=== PATIENT | female | born 1970 | race Caucasian/White ===

== ENCOUNTER 2016-10-11 21:31 | Emergency (ER) | payer MEDICAID ==
[2016-10-11] MEDS ORDERED: Sodium Chloride 0.9% 10 ML Syringe FLUSH PRN (21:41)
--- NOTE | 2016-10-11 21:44 | EDM.PDOC ---
ED HPI ENT - General Chief Complaint: ENT Problem Stated Complaint: Strep throat, achy, throat pain, vomiting Time Seen by Provider: 10/11/16 21:32 Source of Information: Reports: Patient, RN, RN notes reviewed History Limitations: Reports: No limitations - History of Present Illness INITIAL COMMENTS - FREE TEXT/NARRATIVE: Patient presents to the ED at [facility] complaining of severe throat pain, N/V, and weakness. Patient was seen by me in the clinic 2 days ago and was treated for positive strep throat. Patient states her symptoms are worse tonight. Patient states she feels sick to her stomach and has vomited x3 today. She is trying to stay well hydrated, but swallowing is painful. No respiratory problems. No focal neurological deficits. No cardiac symptoms. 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) (currently taking Augmentin PO) - Related Data Allergies/ADRs: Allergies Allergy/AdvReac Type Severity Reaction Status Date / Time scopolamine Allergy Mild Rash Verified 10/11/16 21:48 aspirin Allergy Unknown Other Verified 10/11/16 21:48 Home Meds: Home Meds Amitriptyline [Elavil] 50 mg PO BEDTIME 09/20/13 [History] Multivitamin [Multi-Vitamin Daily] 1 tab PO DAILY 09/20/13 [History] DULoxetine [Cymbalta] 90 mg PO DAILY 03/20/14 [History] Baclofen [Lioresal] 20 mg PO TID 08/06/15 [History] Calcium Carb & Citrate/Vit D3 [Citracal + D ER] 1 each PO BID 08/06/15 [History] Cholecalciferol (Vitamin D3) [Vitamin D3] 2,000 unit PO DAILY 08/06/15 [History] Cyanocobalamin (Vitamin B12) [Vitamin B12] 500 mcg PO DAILY 08/06/15 [History] Dicyclomine [Bentyl] 10 mg PO QIDACANDBED 08/06/15 [History] Estrogen,Con/M-Progest Acet [Prempro 0.45-1.5 MG] 1 each PO DAILY 08/06/15 [ History] Ferrous Sulfate [Iron Supplement] 325 mg PO DAILY 08/06/15 [History] Gabapentin [Gabapentin] 800 mg PO TID 08/06/15 [History] Lidocaine 5% [Lidoderm 5%] 700 mg TOP DAILY 08/06/15 [History] Magnesium 500 mg PO DAILY 08/06/15 [History] busPIRone [Buspar] 30 mg PO BID 08/06/15 [History] Atropine/Diphenoxylate [Lomotil 0.025-2.5 MG] 1 tab PO QID PRN 09/19/16 [History ] Nystatin 1 applic TOP TID PRN 09/19/16 [History] Ondansetron [Zofran Odt] 4 mg PO Q6H PRN 09/19/16 [History] Amoxicillin/Potassium Clav [Augmentin 875-125 Tablet] 1 tab PO BID 10/11/16 [ History] Past Medical History HEENT History: Reports: Allergic rhinitis Cardiovascular History: Reports: CAD, High cholesterol Respiratory History: Reports: None Gastrointestinal History: Reports: Chronic diarrhea, Irritable bowel syndrome Genitourinary History: Reports: Other (see below) Other Genitourinary History: HPV +. 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 HIP BURSITIS Neurological History: Reports: Migraines, Other (see below) Other Neuro History: LUMBAR DISC HERNIATION. SI PAIN Psychiatric History: Reports: Addiction, Anxiety, Depression, Eating disorders Endocrine/Metabolic History: Reports: Diabetes, type II, Obesity/BMI 30+ Other Endocrine/Metabolic History: IFG Hematologic History: Reports: Other (see below) Other Hematologic History: + HEP C ANITIBODY Immunologic History: Reports: None Oncologic (Cancer) History: Reports: None Dermatologic History: Reports: None - Infectious Disease History Infectious Disease History: Reports: Chicken pox - Past Surgical History HEENT Surgical History: Reports: None Cardiovascular Surgical History: Reports: None GI Surgical History: Reports: Bariatric procedure, Cholecystectomy Female Surgical History: Reports: Tubal ligation Neurological Surgical History: Reports: Lumbar spine, Spinal fusion Musculoskeletal Surgical History: Reports: Other (see below) Other Musculoskeletal Surgeries/Procedures:: back surgery 01/29/16 Oncologic Surgical History: Reports: None Social & Family History - Family History Family Medical History: Noncontributory - Tobacco Use Smoking Status *Q: Former Smoker Years of Tobacco use: 5 Packs/Tins Daily: 1 Used Tobacco, but Quit: Yes Month Tobacco Last Used: 5 years Second Hand Smoke Exposure: No - Alcohol Use Days Per Week of Alcohol Use: 0 - Recreational Drug Use Recreational Drug Use: No Drug Use in Last 12 Months: No Recreational Drug Type: Reports: Cocaine, Marijuana/Hashish Recreational Drug Use Frequency: Not Used In Over 1 Year ED ROS ENT - Review of Systems Review Of Systems: See Below Constitutional: Reports: weakness, decreased appetite. Denies: fever, chills HEENT: Reports: Throat pain, Throat swelling. Denies: Ear discharge, Ear pain, Eye discharge, Eye pain, Rhinitis, Sinus problem Respiratory: Denies: shortness of breath, cough Cardiovascular: Denies: Chest pain, Palpitations GI/Abdominal: Reports: Nausea, Vomiting. Denies: Abdominal pain, Diarrhea Musculoskeletal: Reports: muscle pain (generalized) Skin: Reports: no symptoms Neurological: Reports: no symptoms. Denies: dizziness, headache ED EXAM, ENT - Physical Exam Exam: See Below Exam Limited By: No limitations General Appearance: alert, no apparent distress Eye Exam: bilateral eye: EOMI, normal inspection, PERRL Ears: normal external exam, normal canal, hearing grossly normal, normal TMs Nose: normal mucousa, clear rhinorrhea Mouth/Throat: Dry mucous membrane, Pharyngeal erythema, Throat pain, Throat swelling, Tonsillar erythema, Tonsillar exudates, Tonsillar swelling, Uvular deviation Head: atraumatic, normocephalic Neck: lymphadenopathy (L), lymphadenopathy (R) Respiratory/Chest: no respiratory distress, lungs clear, decreased breath sounds Cardiovascular: regular rate, rhythm GI/Abdominal: normal bowel sounds, soft, non tender, no distention Neurological: alert, oriented Skin: Warm, Dry, Intact, Normal color, No rash Course - Vital Signs Last Recorded V/S: Last Vital Signs Temp 36.8 C 10/11/16 21:35 Pulse 100 10/11/16 21:35 Resp 16 10/11/16 21:35 BP 136/84 10/11/16 21:35 Pulse Ox - Orders/Labs/Meds Orders: Active Orders 24 hr Category Date Time Status Soft Tissue Neck w Cont [CT] Stat Exams 10/11/16 21:41 Taken BASIC METABOLIC PANEL,BMP [CHEM] Stat Lab 10/11/16 22:44 Received Sodium Chloride 0.9% [Normal Saline] 1,000 ml Med 10/11/16 21:45 Active IV ASDIRECTED Sodium Chloride 0.9% [Saline Flush] Med 10/11/16 21:41 Active 10 ml FLUSH ASDIRECTED PRN Peripheral IV Insertion Adult [OM.PC] Routine Oth 10/11/16 21:41 Ordered Medication Orders Sodium Chloride (Normal Saline) 1,000 mls @ 999 mls/hr IV ASDIRECTED YISSEL Last Admin: 10/11/16 21:59 Dose: 999 mls/hr Sodium Chloride (Saline Flush) 10 ml FLUSH ASDIRECTED PRN PRN Reason: Keep Vein Open Labs: Laboratory Tests 10/11/16 Range/Units 22:44 WBC 6.6 (4.0-10.0) x10^3/uL RBC 3.64 L (4.00-5.50) x10^6/uL Hgb 10.6 L (12.0-16.0) g/dL Hct 32.3 L (33.0-47.0) % MCV 88.7 (78.0-93.0) fL MCH 29.1 (26.0-32.0) pg MCHC 32.8 (32.0-36.0) g/dL RDW Coeff of Ever 13.4 (10.0-15.0) % Plt Count 294 (130-400) x10^3/uL Neut % (Auto) 53.1 (50.0-80.0) % Lymph % (Auto) 37.0 (25.0-50.0) % [place] % (Auto) 7.3 (2.0-11.0) % Eos % (Auto) 2.4 (0.0-4.0) % Baso % (Auto) 0.2 (0.2-1.2) % Meds: Medications Generic Name Dose Route Start Last Admin Trade Name Freq PRN Reason Stop Dose Admin Sodium Chloride 1,000 mls @ 999 mls/hr 10/11/16 21:45 10/11/16 21:59 Normal Saline IV 999 mls/hr ASDIRECTED YISSEL Administration Sodium Chloride 10 ml 10/11/16 21:41 Saline Flush FLUSH ASDIRECTED PRN Keep Vein Open Discontinued Medications Generic Name Dose Route Start Last Admin Trade Name Jose PRN Reason Stop Dose Admin Ceftriaxone Sodium 1 gm 10/11/16 21:49 Rocephin IVPUSH 10/11/16 21:50 ONETIME ONE Sodium Chloride 80 mls @ 3 mls/sec 10/11/16 22:36 10/11/16 22:38 Normal Saline IV 10/11/16 22:37 3 mls/sec ONETIME ONE Administration Iopamidol 75 ml 10/11/16 22:36 10/11/16 22:37 Isovue-300 (61%) IVPUSH 10/11/16 22:37 100 ml ONETIME ONE Administration Ketorolac Tromethamine 30 mg 10/11/16 21:42 10/11/16 22:04 Toradol IVPUSH 10/11/16 21:43 30 mg ONETIME ONE Administration Methylprednisolone Sodium Succinate 125 mg 10/11/16 21:43 10/11/16 22:09 Solu-Medrol IVPUSH 10/11/16 21:44 125 mg ONETIME ONE Administration Ondansetron HCl 4 mg 10/11/16 21:42 10/11/16 22:03 Zofran IVPUSH 10/11/16 21:43 4 mg ONETIME ONE Administration Departure - Departure Time of Disposition: 23:03 Disposition: Home, Self-Care 01 Condition: good Clinical Impression: Strep pharyngitis, Tonsillar hypertrophy, Myalgia and myositis Instructions: Strep Throat, [id number], Tonsillitis, [id number] Referrals: Berta Veliz PA-C [Primary Care Provider] - Forms: ED Department Discharge Additional Instructions: 1. Stay well hydrated and rest 2. Continue with taking the Augmentin 3. Use Lidocaine to help with throat pain; may also use Tylenol 4. Take steroids for the full coarse 5. See your Primary as symptoms warrant ED Communication - ED Communication Date/Time Date: 10/11/16 Time Called: 22:47 - Discussed Case With (1) Discussed Case With (1): Radiologist Person/s Notified (1): Sumeet Ferrell - Conversation Summary Radiology Reading Discussed with Radiologist: Yes Summary Comment: No peritonsillar abscess; no acute pathology on CT of Neck - Problem List Review Problem List Initiated/Reviewed/Updated: Yes - My Orders Last 24 Hours: My Active Orders 10/11/16 21:41 Soft Tissue Neck w Cont [CT] Stat Sodium Chloride 0.9% [Saline Flush] 10 ml FLUSH ASDIRECTED PRN Peripheral IV Insertion Adult [OM.PC] Routine 10/11/16 21:45 Sodium Chloride 0.9% [Normal Saline] 1,000 ml IV ASDIRECTED 10/11/16 22:44 BASIC METABOLIC PANEL,BMP [CHEM] Stat - Assessment/Plan Last 24 Hours: My Active Orders 10/11/16 21:41 Soft Tissue Neck w Cont [CT] Stat Sodium Chloride 0.9% [Saline Flush] 10 ml FLUSH ASDIRECTED PRN Peripheral IV Insertion Adult [OM.PC] Routine 10/11/16 21:45 Sodium Chloride 0.9% [Normal Saline] 1,000 ml IV ASDIRECTED 10/11/16 22:44 BASIC METABOLIC PANEL,BMP [CHEM] Stat
[2016-10-11 21:49] VITALS: BP 136/84
[2016-10-11] MEDS: Sodium Chloride 0.9% 1,000 ML IV SCH (21:59)
[2016-10-11] MEDS: Ondansetron 4 MG/2 ML SDV IVPUSH ONE (22:03)
[2016-10-11] MEDS: Ketorolac 30 MG/ML SDV IVPUSH ONE (22:04)
[2016-10-11] MEDS: methylPREDNISolone Sodium Succinate 125 MG/2 ML SDV IVPUSH ONE (22:09)
[2016-10-11] MEDS ORDERED: Lidocaine 2% Viscous Solution 15 ML Cup ONE (22:12)
[2016-10-11] MEDS: cefTRIAXone 1 GM Vial IVPUSH ONE (22:12)
[2016-10-11] MEDS: Iopamidol 612 MG/ML 100 ML Bottle IVPUSH ONE (22:37)
[2016-10-11] MEDS: Sodium Chloride 0.9% 80 ML IV ONE (22:38)
[2016-10-11 23:04] LABS: CHLORIDE,CL 107 mmol/L (98-107); SODIUM,NA 142 mmol/L (136-145)
[2016-10-11] MEDS ORDERED: Lidocaine 2% Viscous Solution 100 ML Bottle PO PRN (23:07)
[2016-10-11] MEDS: Take Home: predniSONE 20 MG, 2 Tab Pack PO ONE (23:20)
== END 2016-10-11 23:33 | disposition home or self-care (01) ==
LOC: VM.ED 21:31
DX: J35.1 Hypertrophy of tonsils (principal); J02.9 Acute pharyngitis, unspecified; M60.9 Myositis, unspecified; I25.10 Atherosclerotic heart disease of native coronary artery without angina pectoris; Z79.899 Other long term (current) drug therapy; E78.00 Pure hypercholesterolemia, unspecified; Z87.891 Personal history of nicotine dependence
CPT/HCPCS: 36415; 70491; 80048; 85025; 96361; 96374; 96375; 99284; A9270-GY; J0696; J1885; J2405; J2930; J7030; J7050; Q9967

== ENCOUNTER 2016-12-01 20:07 | Emergency (ER) | payer BC, MEDICAID ==
--- NOTE | 2016-12-01 20:41 | EDM.PDOC ---
ED HPI LOWER BACK PAIN/INJURY - General Chief Complaint: Back Pain or Injury Stated Complaint: BACK PAIN Time Seen by Provider: 12/01/16 20:25 Source of Information: Reports: Patient History Limitations: Reports: No limitations - History of Present Illness INITIAL COMMENTS - FREE TEXT/NARRATIVE: Patient states she was bending over to get something off the floor and heard a pop. She complains of pain and tingling down the lateral left leg to her foot. She does have history of lumbar fusion. She denies other symptoms today. She did ambulate into the ED. Symptom Onset Date: 12/01/16 Symptom Onset Time: 17:00 Timing/Duration: Reports: Sudden onset Location: Reports: lower, midline Quality: Reports: Same as previous episode Severity: moderate Place of Occurrence: home Worsens with: Reports: Immobilization Context: Reports: bending - Related Data Allergies/ADRs: Allergies Allergy/AdvReac Type Severity Reaction Status Date / Time scopolamine Allergy Mild Rash Verified 12/01/16 20:57 aspirin Allergy Unknown Other Verified 12/01/16 20:57 Home Meds: Home Meds Amitriptyline [Elavil] 50 mg PO BEDTIME 09/20/13 [History] Multivitamin [Multi-Vitamin Daily] 1 tab PO DAILY 09/20/13 [History] DULoxetine [Cymbalta] 90 mg PO DAILY 03/20/14 [History] Baclofen [Lioresal] 20 mg PO TID 08/06/15 [History] Calcium Carb & Citrate/Vit D3 [Citracal + D ER] 1 each PO BID 08/06/15 [History] Cholecalciferol (Vitamin D3) [Vitamin D3] 2,000 unit PO DAILY 08/06/15 [History] Cyanocobalamin (Vitamin B12) [Vitamin B12] 500 mcg PO DAILY 08/06/15 [History] Dicyclomine [Bentyl] 10 mg PO QIDACANDBED 08/06/15 [History] Estrogen,Con/M-Progest Acet [Prempro 0.45-1.5 MG] 1 each PO DAILY 08/06/15 [ History] Ferrous Sulfate [Iron Supplement] 325 mg PO DAILY 08/06/15 [History] Gabapentin [Gabapentin] 800 mg PO TID 08/06/15 [History] Lidocaine 5% [Lidoderm 5%] 700 mg TOP DAILY 08/06/15 [History] Magnesium 500 mg PO DAILY 08/06/15 [History] busPIRone [Buspar] 30 mg PO BID 08/06/15 [History] Atropine/Diphenoxylate [Lomotil 0.025-2.5 MG] 1 tab PO QID PRN 09/19/16 [History ] Nystatin 1 applic TOP TID PRN 09/19/16 [History] Ondansetron [Zofran Odt] 4 mg PO Q6H PRN 09/19/16 [History] Lidocaine 2% [Xylocaine 2% Viscous] 5 ml PO ASDIRECTED #3 cup 10/12/16 [Rx] Past Medical History HEENT History: Reports: Allergic rhinitis Cardiovascular History: Reports: CAD, High cholesterol Respiratory History: Reports: None Gastrointestinal History: Reports: Chronic diarrhea, Irritable bowel syndrome Genitourinary History: Reports: Other (see below) Other Genitourinary History: HPV +. 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 HIP BURSITIS Neurological History: Reports: Migraines, Other (see below) Other Neuro History: LUMBAR DISC HERNIATION. SI PAIN Psychiatric History: Reports: Addiction, Anxiety, Depression, Eating disorders Endocrine/Metabolic History: Reports: Diabetes, type II, Obesity/BMI 30+ Other Endocrine/Metabolic History: IFG Hematologic History: Reports: Other (see below) Other Hematologic History: + HEP C ANITIBODY Immunologic History: Reports: None Oncologic (Cancer) History: Reports: None Dermatologic History: Reports: None - Infectious Disease History Infectious Disease History: Reports: Chicken pox - Past Surgical History HEENT Surgical History: Reports: None Cardiovascular Surgical History: Reports: None GI Surgical History: Reports: Bariatric procedure, Cholecystectomy Female Surgical History: Reports: Tubal ligation Neurological Surgical History: Reports: Lumbar spine, Spinal fusion Musculoskeletal Surgical History: Reports: Other (see below) Other Musculoskeletal Surgeries/Procedures:: back surgery 01/29/16 Oncologic Surgical History: Reports: None Social & Family History - Family History Family Medical History: Noncontributory - Tobacco Use Smoking Status *Q: Former Smoker Years of Tobacco use: 5 Packs/Tins Daily: 1 Used Tobacco, but Quit: Yes Month Tobacco Last Used: 5 years Second Hand Smoke Exposure: No - Alcohol Use Days Per Week of Alcohol Use: 0 - Recreational Drug Use Recreational Drug Use: No Drug Use in Last 12 Months: No Recreational Drug Type: Reports: Cocaine, Marijuana/Hashish Recreational Drug Use Frequency: Not Used In Over 1 Year ED ROS GENERAL - Review of Systems Review Of Systems: See Below Constitutional: Reports: no symptoms HEENT: Reports: No symptoms Respiratory: Reports: No Symptoms Cardiovascular: Reports: No symptoms Endocrine: Reports: no symptoms GI/Abdominal: Reports: No symptoms Musculoskeletal: Reports: back pain, leg pain Skin: Reports: no symptoms Neurological: Reports: Tingling (left lateral aspect, hip to foot) Psychiatric: Reports: No symptoms Hematologic/Lymphatic: Reports: no symptoms Immunologic: Reports: no symptoms ED EXAM,LOWER BACK PAIN/INJURY - Physical Exam Exam: See Below Exam Limited By: No limitations General Appearance: alert, WD/WN, mild distress Eye Exam: bilateral eye: EOMI, PERRL Respiratory/Chest: no respiratory distress, lungs clear, normal breath sounds, no accessory muscle use, chest non-tender Cardiovascular: normal peripheral pulses, regular rate, rhythm GI/Abdominal: normal bowel sounds, soft, non tender, no organomegaly Back Exam: normal inspection, decreased range of motion, vertebral tenderness, other Extremities: limited range of motion (left leg exhibits no weakness comparatively to right side) Neurological: alert, normal mood/affect, normal dorsiflexion, CN II-XII intact, normal plantar flexion, normal gait, normal reflexes, oriented x 3, difficulty walking Psychiatric: normal affect, normal mood Skin Exam: Warm, Dry, Intact Lymphatic: no adenopathy Course - Re-Assessments/Exams Free Text/Narrative Re-Assessment/Exam: 12/01/16 22:02 lumbar spine x-ray ordered, no acute lumbar fracture Departure - Departure Time of Disposition: 21:57 Disposition: Home, Self-Care 01 Condition: good Clinical Impression: Lumbar back pain with radiculopathy affecting left lower extremity Instructions: Back Injury Prevention, [id number], Thoracic Strain, Easy-to- Read Additional Instructions: Take all medications as prescribed and follow up with your PCP as needed I will call you with any abnormal results tonight. Take your medications with food Stay hydrated, alternate ice and heat to your back. You may also try warm bath or hot tub, topical creams like aspercreme, icy/hot You may also want to try an aleve product that sends electrical impulses like a TENS unit to see if that is helpful for your muscles. Please call us with any questions or concerns. - Problem List & Annotations (1) Lumbar back pain with radiculopathy affecting left lower extremity SNOMED Code(s): 264053752, [id number] Code(s): M54.17 - RADICULOPATHY, LUMBOSACRAL REGION Status: Acute Priority: Low Current Visit: Yes - Problem List Review Problem List Initiated/Reviewed/Updated: Yes - Assessment/Plan Assessment:: lumbar strain with radiculopathy down left leg Plan: Take all medications as prescribed and follow up with your PCP as needed I will call you tonight with any abnormal x-ray results Take your medications with food Stay hydrated, alternate ice and heat to your back. You may also try warm bath or hot tub, topical creams like aspercreme, icy/hot You may also want to try an aleve product that sends electrical impulses like a TENS unit to see if that is helpful for your muscles. Please call us with any questions or concerns.
[2016-12-01] MEDS ORDERED: Ketorolac 60 MG/2 ML SDV IM ONE (20:44)
[2016-12-01] MEDS ORDERED: Ondansetron 4 MG Tab.DIS PO ONE (20:44)
[2016-12-01] MEDS ORDERED: Acetaminophen/HYDROcodone 325-10 MG Tab PO ONE (20:44)
[2016-12-01] MEDS ORDERED: Cyclobenzaprine 10 MG Tab PO ONE (20:44)
[2016-12-01] MEDS ORDERED: Take Home: Cyclobenzaprine 10 MG Tab, 4 Tab Pack PO ONE (20:46)
[2016-12-01] MEDS ORDERED: Take Home: Acetaminophen/HYDROcodone 325-10 MG, 5 Tab Pack PO ONE (20:46)
[2016-12-01 20:57] VITALS: BP 132/82
[2016-12-01] MEDS ORDERED: predniSONE 20 MG Tab PO ONE (21:25)
[2016-12-01] MEDS ORDERED: predniSONE 20 MG Tab ONE (21:29)
[2016-12-02] MEDS ORDERED: predniSONE 20 MG Tab PO ONE (20:46)
== END 2016-12-01 21:40 | disposition home or self-care (01) ==
LOC: VM.ED 20:07
DX: M54.16 Radiculopathy, lumbar region (principal); I25.10 Atherosclerotic heart disease of native coronary artery without angina pectoris; E78.00 Pure hypercholesterolemia, unspecified; F41.9 Anxiety disorder, unspecified; F32.9 Major depressive disorder, single episode, unspecified; E11.9 Type 2 diabetes mellitus without complications; Z88.8 Allergy status to other drugs, medicaments and biological substances; Z79.899 Other long term (current) drug therapy; Z87.891 Personal history of nicotine dependence; Z90.49 Acquired absence of other specified parts of digestive tract
CPT/HCPCS: 72100; 96372; 99283; A9270; J1885

== ENCOUNTER 2016-12-22 05:47 | Emergency (ER) | payer BC, OTHER ==
[2016-12-22 05:54] VITALS: BP 145/96
[2016-12-22] MEDS ORDERED: GI Cocktail Oral Solution 30 ML PO ONE (06:37)
[2016-12-22] MEDS ORDERED: Ketorolac 30 MG/ML SDV IM ONE (06:38)
--- NOTE | 2016-12-22 06:52 | EDM.PDOC ---
ED HPI GI/ABDOMINAL - General Chief Complaint: Abdominal Pain Stated Complaint: abdominal pain Time Seen by Provider: 12/22/16 06:20 Source of Information: Reports: Patient History Limitations: Reports: No limitations - History of Present Illness INITIAL COMMENTS - FREE TEXT/NARRATIVE: Patient presents with abdominal pain that started yesterday. She denies fever, chills, no blood in her urine, stool. She has nausea, no emesis. Has regular bm's x 2 daily. No urinary complaints. She states her abdominal pain starts in the upper middle and spreads to the left side. She says she has taken tylenol. Denies any sick contact. Surgical history includes gastric bypass, gall bladder removal. Appendix intact. Former smoker. 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 - Related Data Allergies/ADRs: Allergies Allergy/AdvReac Type Severity Reaction Status Date / Time scopolamine Allergy Mild Rash Verified 12/22/16 05:51 aspirin Allergy Unknown Other Verified 12/22/16 05:51 Home Meds: Home Meds Amitriptyline [Elavil] 50 mg PO BEDTIME 09/20/13 [History] Multivitamin [Multi-Vitamin Daily] 1 tab PO DAILY 09/20/13 [History] DULoxetine [Cymbalta] 90 mg PO DAILY 03/20/14 [History] Baclofen [Lioresal] 20 mg PO TID 08/06/15 [History] Calcium Carb & Citrate/Vit D3 [Citracal + D ER] 1 each PO BID 08/06/15 [History] Cholecalciferol (Vitamin D3) [Vitamin D3] 2,000 unit PO DAILY 08/06/15 [History] Cyanocobalamin (Vitamin B12) [Vitamin B12] 500 mcg PO DAILY 08/06/15 [History] Dicyclomine [Bentyl] 10 mg PO QIDACANDBED 08/06/15 [History] Estrogen,Con/M-Progest Acet [Prempro 0.45-1.5 MG] 1 each PO DAILY 08/06/15 [ History] Ferrous Sulfate [Iron Supplement] 325 mg PO DAILY 08/06/15 [History] Gabapentin [Gabapentin] 800 mg PO TID 08/06/15 [History] Magnesium 500 mg PO DAILY 08/06/15 [History] busPIRone [Buspar] 30 mg PO BID 08/06/15 [History] Atropine/Diphenoxylate [Lomotil 0.025-2.5 MG] 1 tab PO QID PRN 09/19/16 [History ] Nystatin 1 applic TOP TID PRN 09/19/16 [History] Ondansetron [Zofran Odt] 4 mg PO Q6H PRN 09/19/16 [History] Lidocaine 1 each TP ASDIRECTED 12/22/16 [History] Pregabalin [Lyrica] 50 mg PO TID 12/22/16 [History] Past Medical History HEENT History: Reports: Allergic rhinitis Cardiovascular History: Reports: CAD, High cholesterol Respiratory History: Reports: None Gastrointestinal History: Reports: Chronic diarrhea, Irritable bowel syndrome Genitourinary History: Reports: Other (see below) Other Genitourinary History: HPV +. 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 HIP BURSITIS Neurological History: Reports: Migraines, Other (see below) Other Neuro History: LUMBAR DISC HERNIATION. SI PAIN Psychiatric History: Reports: Addiction, Anxiety, Depression, Eating disorders Endocrine/Metabolic History: Reports: Diabetes, type II, Obesity/BMI 30+ Other Endocrine/Metabolic History: IFG Hematologic History: Reports: Other (see below) Other Hematologic History: + HEP C ANITIBODY Immunologic History: Reports: None Oncologic (Cancer) History: Reports: None Dermatologic History: Reports: None - Infectious Disease History Infectious Disease History: Reports: Chicken pox - Past Surgical History HEENT Surgical History: Reports: None Cardiovascular Surgical History: Reports: None GI Surgical History: Reports: Bariatric procedure, Cholecystectomy Female Surgical History: Reports: Tubal ligation Neurological Surgical History: Reports: Lumbar spine, Spinal fusion Musculoskeletal Surgical History: Reports: Other (see below) Other Musculoskeletal Surgeries/Procedures:: back surgery 01/29/16 Oncologic Surgical History: Reports: None Social & Family History - Family History Family Medical History: Noncontributory - Tobacco Use Smoking Status *Q: Former Smoker Years of Tobacco use: 5 Packs/Tins Daily: 1 Used Tobacco, but Quit: Yes Month Tobacco Last Used: ? Second Hand Smoke Exposure: No - Alcohol Use Days Per Week of Alcohol Use: 0 - Recreational Drug Use Recreational Drug Use: No Drug Use in Last 12 Months: No Recreational Drug Type: Reports: Cocaine, Marijuana/Hashish Recreational Drug Use Frequency: Not Used In Over 1 Year ED ROS GENERAL - Review of Systems Review Of Systems: See Below Constitutional: Reports: no symptoms HEENT: Reports: No symptoms Respiratory: Reports: No Symptoms Cardiovascular: Reports: No symptoms Endocrine: Reports: no symptoms GI/Abdominal: Reports: Abdominal pain, Nausea : Reports: no symptoms Musculoskeletal: Reports: no symptoms Skin: Reports: no symptoms Neurological: Reports: No Symptoms Psychiatric: Reports: No symptoms Hematologic/Lymphatic: Reports: no symptoms Immunologic: Reports: no symptoms ED EXAM, GI/ABD - Physical Exam Exam: See Below Exam Limited By: No limitations General Appearance: alert, WD/WN, mild distress Eyes: bilateral: EOMI Ears: normal TMs Nose: normal inspection Throat/Mouth: Normal inspection, Normal oropharynx Head: atraumatic, normocephalic Neck: normal inspection, supple, non-tender, full range of motion Respiratory/Chest: no respiratory distress, lungs clear, normal breath sounds, no accessory muscle use, chest non-tender Cardiovascular: normal peripheral pulses, regular rate, rhythm, no edema, no murmur GI/Abdominal: normal bowel sounds, soft, no organomegaly, no distention, no abnormal bruit, no mass, tenderness, other (mid epigastric pain worsened with palpation) Back Exam: normal inspection Extremities: normal inspection, normal range of motion, non-tender, no pedal edema, normal capillary refill Neurological: alert, oriented, CN II-XII intact, normal cognition, normal gait, normal reflexes, no motor/sensory deficits Psychiatric: normal affect, normal mood Skin Exam: Warm, Dry, Intact, Normal color Lymphatic: no adenopathy EKG INTERPRETATION EKG Date: 12/22/16 Time: 06:43 Rhythm: NSR [place]: normal P-wave: present QRS: normal ST-T: normal QT: normal Comparison: NA - no prior EKG Course - Vital Signs Last Recorded V/S: Last Vital Signs Temp 36.3 C 12/22/16 05:51 Pulse 87 12/22/16 05:51 Resp 20 12/22/16 05:51 BP 145/96 H 12/22/16 05:51 Pulse Ox 98 12/22/16 05:51 - Orders/Labs/Meds Orders: Active Orders 24 hr Category Date Time Status EKG Documentation Completion [RC] ROUTINE Care 12/22/16 06:37 Ordered C-REACTIVE PROTEIN [CHEM] Stat Lab 12/22/16 06:37 Ordered CBC WITH AUTO DIFF [HEME] Stat Lab 12/22/16 06:37 Ordered CK W CKMB [CHEM] Stat Lab 12/22/16 06:37 Ordered TROPONIN I [CHEM] Stat Lab 12/22/16 06:37 Ordered Meds: Medications Discontinued Medications Generic Name Dose Route Start Last Admin Trade Name Jose PRN Reason Stop Dose Admin Al Hydroxide/Mg Hydroxide 30 ml 12/22/16 06:37 Gi Cocktail PO 12/22/16 06:38 ONETIME ONE Ketorolac Tromethamine 30 mg 12/22/16 06:38 Toradol IM 12/22/16 06:39 ONETIME ONE - Re-Assessments/Exams Free Text/Narrative Re-Assessment/Exam: 12/22/16 07:54 Labs and x-rays ordered. No abnormalities seen on x-ray, labs all within normal limits, ecg normal sinus with no abnormalities, cardiac enzymes normal. Departure - Departure Time of Disposition: 09:50 Disposition: Home, Self-Care 01 Condition: good Clinical Impression: Abdominal pain Instructions: Abdominal Pain, Adult, [id number] Forms: ED Department Discharge Additional Instructions: Your labs and x-ray were all normal and did not show any emergent illness. Your CT did show some possible backwards flowing of your small bowel; an Upper GI is suggested for clarification See your primary provider for a GI referral Sandhya for nausea. You need to see a primary doctor for your abdominal pain if it continues for the next few days. This does not appear to be emergent in nature. Drink plenty of water to stay hydrated, if you can eat you should do so, if eating makes you nauseated, you can wait to eat until you feel better. Take ibuprofen and tylenol as needed for pain. You can also try a heating pad over the area. You may also want to try a proton pump inhibitor like prilosec for your stomach pain in case this is related to reflux disease. If this does continue for some time, a referral to a front office developer to determine the cause may be warranted. Return as soon as possible to the ED if you develop any high fevers, chills, intractable vomiting. Please call with any questions or concerns. - Problem List & Annotations (1) Abdominal pain SNOMED Code(s): 95927744 Code(s): R10.9 - UNSPECIFIED ABDOMINAL PAIN Status: Acute Priority: Low Current Visit: Yes Qualifiers: Abdominal location: epigastric Qualified Code(s): R10.13 - Epigastric pain - Problem List Review Problem List Initiated/Reviewed/Updated: Yes - My Orders Last 24 Hours: My Active Orders 12/22/16 06:37 EKG Documentation Completion [RC] ROUTINE C-REACTIVE PROTEIN [CHEM] Stat CBC WITH AUTO DIFF [HEME] Stat CK W CKMB [CHEM] Stat TROPONIN I [CHEM] Stat - Assessment/Plan Last 24 Hours: My Active Orders 12/22/16 06:37 EKG Documentation Completion [RC] ROUTINE C-REACTIVE PROTEIN [CHEM] Stat CBC WITH AUTO DIFF [HEME] Stat CK W CKMB [CHEM] Stat TROPONIN I [CHEM] Stat Assessment:: abdominal pain Plan: Your labs and x-ray were all normal and did not show any emergent illness. Your CT did show some possible backwards flowing of your small bowel; an Upper GI is suggested for clarification See your primary provider for a GI referral Gabean for nausea. You need to see a primary doctor for your abdominal pain if it continues for the next few days. This does not appear to be emergent in nature. Drink plenty of water to stay hydrated, if you can eat you should do so, if eating makes you nauseated, you can wait to eat until you feel better. Take ibuprofen and tylenol as needed for pain. You can also try a heating pad over the area. You may also want to try a proton pump inhibitor like prilosec for your stomach pain in case this is related to reflux disease. If this does continue for some time, a referral to a front office developer to determine the cause may be warranted. Return as soon as possible to the ED if you develop any high fevers, chills, intractable vomiting. Please call with any questions or concerns.
[2016-12-22] MEDS ORDERED: Ondansetron 4 MG Tab.DIS PO ONE (07:58)
== END 2016-12-22 09:52 | disposition home or self-care (01) ==
LOC: VM.ED 05:47
DX: R10.13 Epigastric pain (principal); I25.10 Atherosclerotic heart disease of native coronary artery without angina pectoris; E78.00 Pure hypercholesterolemia, unspecified; E11.9 Type 2 diabetes mellitus without complications; E66.9 Obesity, unspecified; Z87.891 Personal history of nicotine dependence; Z88.8 Allergy status to other drugs, medicaments and biological substances; Z79.899 Other long term (current) drug therapy; Z68.35 Body mass index [BMI] 35.0-35.9, adult
CPT/HCPCS: 36415; 74020; 74176; 82550; 82553; 82565; 84484; 85025; 86140; 93005; 96372; 99285; A9270; J1885

== ENCOUNTER 2017-01-26 17:26 | Emergency (ER) | payer BC, MEDICAID ==
[2017-01-26 17:33] VITALS: BP 119/83
--- NOTE | 2017-01-26 17:34 | EDM.PDOC ---
ED HPI GENERAL MEDICAL PROBLEM - General Chief Complaint: Abdominal Pain Stated Complaint: epigastric pain Time Seen by Provider: 01/26/17 17:27 Source of Information: Reports: Patient, EMS Notes Reviewed, RN, RN Notes Reviewed History Limitations: Reports: No Limitations - History of Present Illness INITIAL COMMENTS - FREE TEXT/NARRATIVE: Patient is brought to the emergency room at [facility] via EMS for severe epigastric abdominal pain. The patient has a history of a gastric bypass 3 years ago. The patient states over the past 3-4 months she's had some discomfort in her upper abdomen up but today the discomfort became very painful. The patient states that she feels severely nauseated and has vomited a couple times today. The patient also complains of severe weakness. The patient' s symptoms all began today. The patient denies any chest pain. No shortness of breath. No focal neurological deficit. 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) Abdominal Pain Score (Numeric/FACES): 9 - Related Data Allergies Allergy/AdvReac Type Severity Reaction Status Date / Time scopolamine Allergy Mild Rash Verified 01/26/17 17:36 aspirin Allergy Unknown Other Verified 01/26/17 17:36 Home Meds: Home Meds Amitriptyline [Elavil] 50 mg PO BEDTIME 09/20/13 [History] Multivitamin [Multi-Vitamin Daily] 1 tab PO DAILY 09/20/13 [History] DULoxetine [Cymbalta] 90 mg PO DAILY 03/20/14 [History] Baclofen [Lioresal] 20 mg PO TID 08/06/15 [History] Calcium Carb & Citrate/Vit D3 [Citracal + D ER] 1 each PO BID 08/06/15 [History] Cholecalciferol (Vitamin D3) [Vitamin D3] 2,000 unit PO DAILY 08/06/15 [History] Cyanocobalamin (Vitamin B12) [Vitamin B12] 500 mcg PO DAILY 08/06/15 [History] Dicyclomine [Bentyl] 10 mg PO QIDACANDBED 08/06/15 [History] Estrogen,Con/M-Progest Acet [Prempro 0.45-1.5 MG] 1 each PO DAILY 08/06/15 [ History] Ferrous Sulfate [Iron Supplement] 325 mg PO DAILY 08/06/15 [History] Gabapentin [Gabapentin] 800 mg PO TID 08/06/15 [History] Magnesium 500 mg PO DAILY 08/06/15 [History] busPIRone [Buspar] 30 mg PO BID 08/06/15 [History] Atropine/Diphenoxylate [Lomotil 0.025-2.5 MG] 1 tab PO QID PRN 09/19/16 [History ] Nystatin 1 applic TOP TID PRN 09/19/16 [History] Ondansetron [Zofran Odt] 4 mg PO Q6H PRN 09/19/16 [History] Lidocaine 1 each TP ASDIRECTED 12/22/16 [History] Pregabalin [Lyrica] 50 mg PO TID 12/22/16 [History] Past Medical History HEENT History: Reports: Allergic Rhinitis Cardiovascular History: Reports: CAD, High Cholesterol Respiratory History: Reports: None Gastrointestinal History: Reports: Chronic Diarrhea, Irritable Bowel Syndrome Genitourinary History: Reports: Other (See Below) Other Genitourinary History: HPV +. 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 HIP BURSITIS Neurological History: Reports: Migraines, Other (See Below) Other Neuro History: LUMBAR DISC HERNIATION. SI PAIN Psychiatric History: Reports: Addiction, Anxiety, Depression, Eating Disorders Endocrine/Metabolic History: Reports: Diabetes, Type II, Obesity/BMI 30+ Other Endocrine/Metabolic History: IFG Hematologic History: Reports: Other (See Below) Other Hematologic History: + HEP C ANITIBODY Immunologic History: Reports: None Oncologic (Cancer) History: Reports: None Dermatologic History: Reports: None - Infectious Disease History Infectious Disease History: Reports: Chicken Pox - Past Surgical History GI Surgical History: Reports: Bariatric Procedure, Cholecystectomy Female Surgical History: Reports: Tubal Ligation Neurological Surgical History: Reports: Lumbar Spine, Spinal Fusion Musculoskeletal Surgical History: Reports: Other (See Below) Social & Family History - Family History Family Medical History: Noncontributory - Tobacco Use Smoking Status *Q: Former Smoker Years of Tobacco use: 5 Packs/Tins Daily: 1 Used Tobacco, but Quit: Yes Month Tobacco Last Used: ? Second Hand Smoke Exposure: No - Alcohol Use Days Per Week of Alcohol Use: 0 - Recreational Drug Use Recreational Drug Use: No Drug Use in Last 12 Months: No Recreational Drug Type: Reports: Cocaine, Marijuana/Hashish Recreational Drug Use Frequency: Not Used In Over 1 Year ED ROS GENERAL - Review of Systems Review Of Systems: See Below Constitutional: Denies: Fever, Chills, Weakness Respiratory: Denies: Shortness of Breath, Cough Cardiovascular: Denies: Chest Pain, Palpitations GI/Abdominal: Reports: Abdominal Pain, Diarrhea, Nausea, Vomiting. Denies: Black Stool, Bloody Stool Skin: Reports: No Symptoms Neurological: Reports: No Symptoms. Denies: Dizziness, Headache ED EXAM, GI/ABD - Physical Exam Exam: See Below Exam Limited By: No Limitations General Appearance: Alert, No Apparent Distress Respiratory/Chest: No Respiratory Distress, Lungs Clear, Normal Breath Sounds Cardiovascular: Normal Peripheral Pulses, Regular Rate, Rhythm GI/Abdominal: No Distention, Hypoactive Bowel Sounds (LLQ/RLQ), Hyperactive Bowel Sounds (LUQ/RUQ), Tenderness, Guarding Neurological: Alert, Oriented Skin Exam: Warm, Dry, Intact, Normal Color, No Rash Course - Vital Signs Last Recorded V/S: Last Vital Signs Temp 36.1 C 01/26/17 17:26 Pulse 62 01/26/17 17:26 Resp 18 01/26/17 17:26 BP 119/83 01/26/17 17:26 Pulse Ox 95 01/26/17 17:26 - Orders/Labs/Meds Labs: Laboratory Tests 01/26/17 01/26/17 01/26/17 Range/Units 17:45 17:45 17:45 WBC 8.4 (4.0-10.0) x10^3/uL RBC 4.01 (4.00-5.50) x10^6/uL Hgb 12.0 D (12.0-16.0) g/dL Hct 36.9 (33.0-47.0) % MCV 92.0 (78.0-93.0) fL MCH 29.9 (26.0-32.0) pg MCHC 32.5 (32.0-36.0) g/dL RDW Coeff of Ever 13.3 (10.0-15.0) % Plt Count 276 (130-400) x10^3/uL Neut % (Auto) 40.8 L (50.0-80.0) % Lymph % (Auto) 51.9 H (25.0-50.0) % [place] % (Auto) 5.6 (2.0-11.0) % Eos % (Auto) 1.6 (0.0-4.0) % Baso % (Auto) 0.1 L (0.2-1.2) % Sodium 144 (136-145) mmol/L Potassium 3.5 (3.5-5.1) mmol/L Chloride 109 H (98-107) mmol/L Carbon Dioxide 26 (21-32) mmol/L BUN 15 (7-18) mg/dL Creatinine 0.7 (0.55-1.02) mg/dL Est Cr Clr Drug Dosing TNP Estimated GFR (MDRD) > 60 Glucose 61 L (74-106) mg/dL Lactic Acid 1.4 (0.4-2.0) mmol/L Calcium 8.3 L (8.5-10.1) mg/dL Corrected Calcium 8.86 (8.5-10.1) mg/dL Total Bilirubin 0.3 (0.2-1.0) mg/dL AST 15 (15-37) U/L ALT 20 (14-59) U/L Alkaline Phosphatase 108 (46-116) U/L C-Reactive Protein < 0.2 (<=0.9) mg/dL Total Protein 6.9 (6.4-8.2) g/dL Albumin 3.3 L (3.4-5.0) g/dL Globulin 3.6 Albumin/Globulin Ratio 0.92 Amylase 68 (25-115) U/L Lipase 411 H (73-393) U/L Meds: Medications Discontinued Medications Generic Name Dose Route Start Last Admin Trade Name Freq PRN Reason Stop Dose Admin Al Hydroxide/Mg Hydroxide 30 ml 01/26/17 19:35 01/26/17 19:55 Gi Cocktail PO 01/26/17 19:36 30 ml ONETIME ONE Administration Al Hydroxide/Mg Hydroxide 30 ml 01/26/17 19:36 01/26/17 19:55 Mag-Al Plus PO 01/26/17 19:37 30 ml ONETIME ONE Administration Al Hydroxide/Mg Hydroxide Confirm 01/26/17 19:56 Mag-Al Plus Administered 01/26/17 19:57 Dose 30 ml .ROUTE .STK-MED ONE Famotidine 20 mg 01/26/17 19:37 Pepcid PO 01/26/17 19:38 ONETIME ONE Famotidine 20 mg 01/26/17 19:49 01/26/17 19:56 Pepcid IVPUSH 01/26/17 19:50 20 mg ONETIME ONE Administration Fentanyl 50 mcg 01/26/17 18:58 01/26/17 19:02 Sublimaze IVPUSH 01/26/17 18:59 50 mcg ONETIME ONE Administration Hydromorphone HCl 2 mg 01/26/17 17:36 01/26/17 17:53 Dilaudid IV 01/26/17 17:37 2 mg ONETIME ONE Administration Sodium Chloride 1,000 mls @ 999 mls/hr 01/26/17 17:36 01/26/17 17:57 Normal Saline IV 01/26/17 18:36 999 mls/hr ONETIME ONE Administration Ondansetron HCl 4 mg 01/26/17 17:36 Zofran IVPUSH 01/26/17 17:37 ONETIME ONE Sodium Chloride 10 ml 01/26/17 17:35 Saline Flush FLUSH ASDIRECTED PRN Keep Vein Open Departure - Departure Time of Disposition: 20:05 Disposition: Home, Self-Care 01 Condition: Good Clinical Impression: Abdominal pain Qualifiers: Abdominal location: generalized Qualified Code(s): R10.84 - Generalized abdominal pain - Discharge Information Referrals: PCP,Unknown [Primary Care Provider] - Forms: ED Department Discharge Additional Instructions: Home to rest. It is imperative that you take the protonix every day. Follow-up in the clinic in the next 10-14 days. Please excuse from work tomorrow due to illness (01-27-17) - Problem List Review Problem List Initiated/Reviewed/Updated: Yes
[2017-01-26] MEDS ORDERED: Sodium Chloride 0.9% 10 ML Syringe FLUSH PRN (17:35)
[2017-01-26] MEDS ORDERED: HYDROmorphone 1 MG/ML Syringe IV ONE (17:36)
[2017-01-26] MEDS ORDERED: Sodium Chloride 0.9% 1,000 ML IV ONE (17:36)
[2017-01-26] MEDS ORDERED: Ondansetron 4 MG/2 ML SDV IVPUSH ONE (17:36)
[2017-01-26 18:12] LABS: CHLORIDE,CL 109 mmol/L (98-107); SODIUM,NA 144 mmol/L (136-145)
[2017-01-26] MEDS ORDERED: fentaNYL 100 MCG/2 ML SDV IVPUSH ONE (18:58)
[2017-01-26] MEDS ORDERED: GI Cocktail Oral Solution 30 ML PO ONE (19:35)
[2017-01-26] MEDS ORDERED: Aluminum Hydroxide/Magnesium Hydroxide/Simethicone Susp 30 ML Cup PO ONE (19:36)
[2017-01-26] MEDS ORDERED: Famotidine 20 MG Tab PO ONE (19:37)
[2017-01-26] MEDS ORDERED: Famotidine 20 MG/2 ML SDV IVPUSH ONE (19:49)
[2017-01-26] MEDS ORDERED: Aluminum Hydroxide/Magnesium Hydroxide/Simethicone Susp 30 ML Cup ONE (19:56)
--- NOTE | 2017-01-27 07:54 | ER ---
Date of Service: 01/26/2017 SUBJECTIVE: Mercedes presents to the emergency room with complaints of severe epigastric pain. The patient was initially seen by Israel Abdalla. Please refer to his dictation regarding the history of present illness, past medical history, and medications of this patient. The patient's discomfort was treated with IV Dilaudid and fentanyl with minimal improvement in her discomfort. When I took over on this patient at shift change, she had a CT scan of her abdomen and pelvis with contrast, and we are awaiting results. REVIEW OF SYSTEMS: She states that she is continuing to experience epigastric pain. She denies any substernal chest pain and she denies any jaw, arm, neck, or back pain. PHYSICAL EXAMINATION: General: This is a 46-year-old female patient, in no acute distress. Vital Signs: Blood pressure is 119/83, pulse rate 62, temperature is 36.1, respiratory rate is 18, O2 saturations 95%. Lungs: Clear to auscultation. Heart: Regular rate and rhythm. Abdomen: Soft, mildly tender in the epigastrium. There are no masses noted. There is no hepatosplenomegaly noted. Extremities: Without edema. Neurologic: She is alert and oriented, answers all questions appropriately. Her speech is fluent. Her gait is within normal limits. DIAGNOSTIC STUDIES: CT scan of the patient's abdomen and pelvis with contrast was obtained. She did have evidence of a gastric bypass. She had no evidence of any free fluid or air. No evidence of any other acute pathology other than the chronic calcified left adrenal mass. Her hepatobiliary evaluation did not reveal any acute findings other than some mild biliary ductal dilatation consistent with being status post cholecystectomy. No other acute findings were noted. EMERGENCY ROOM COURSE: The patient was given Pepcid 20 mg IV and a GI cocktail with another of Maalox. She did report some improvement in her discomfort and remained stable in my care in the emergency room. ASSESSMENT: Acute on chronic epigastric pain. PLAN: She did bring her medications with her. She does have a prescription for Protonix, and this was filled in October. According to pill count, she has only taken approximately 5 of these tablets since the prescription was filled. I did advise the patient that it is imperative that she takes these medications every day, as it will decrease her chances of experiencing acute epigastric pain such as this. Also advised her to obtain some [id number] Pepcid to take in addition to the Protonix. All questions were answered. MWK: 01/26/2017 21:00:33 MODL: 01/27/2017 00:44:24 /[id number]
== END 2017-01-26 20:39 | disposition home or self-care (01) ==
LOC: VM.ED 17:26
DX: R10.13 Epigastric pain (principal); G89.29 Other chronic pain
CPT/HCPCS: 36415; 74177; 80053; 82150; 83605; 83690; 85025; 86140; 87045; 87046; 87493; 87899; 96361; 96374; 96375; 99284; A9270; J1170; J3010; J7030; S0028

== ENCOUNTER 2017-03-31 10:51 | Emergency (ER) | payer BC, MEDICAID ==
--- NOTE | 2017-03-31 11:16 | EDM.PDOC ---
ED HPI GENERAL MEDICAL PROBLEM - General Chief Complaint: Abdominal Pain Stated Complaint: ABDOMINAL PAIN Time Seen by Provider: 03/31/17 11:04 Source of Information: Reports: Patient History Limitations: Reports: No Limitations - History of Present Illness INITIAL COMMENTS - FREE TEXT/NARRATIVE: Patient presents today with abdominal pain that she states she has had for 2 months. Was seen in January here for epigastric pain that has been resolved with daily protonix use. Today's pain is lower quadrant bilateral pain. She states it is ovarian in nature. CT of abdomen/pelvis from January did not show any acute process at that time, nor did it show any ovarian cyst or endometriosis. History of Hepatitis C antibodies. 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 - Related Data Allergies Allergy/AdvReac Type Severity Reaction Status Date / Time scopolamine Allergy Mild Rash Verified 01/26/17 17:36 aspirin Allergy Unknown Other Verified 01/26/17 17:36 Home Meds: Home Meds Amitriptyline [Elavil] 50 mg PO BEDTIME 09/20/13 [History] Multivitamin [Multi-Vitamin Daily] 1 tab PO DAILY 09/20/13 [History] DULoxetine [Cymbalta] 90 mg PO DAILY 03/20/14 [History] Baclofen [Lioresal] 20 mg PO TID 08/06/15 [History] Calcium Carb & Citrate/Vit D3 [Citracal + D ER] 1 each PO BID 08/06/15 [History] Cholecalciferol (Vitamin D3) [Vitamin D3] 2,000 unit PO DAILY 08/06/15 [History] Cyanocobalamin (Vitamin B12) [Vitamin B12] 500 mcg PO DAILY 08/06/15 [History] Dicyclomine [Bentyl] 10 mg PO QIDACANDBED 08/06/15 [History] Estrogen,Con/M-Progest Acet [Prempro 0.45-1.5 MG] 1 each PO DAILY 08/06/15 [ History] Ferrous Sulfate [Iron Supplement] 325 mg PO DAILY 08/06/15 [History] Magnesium 500 mg PO DAILY 08/06/15 [History] busPIRone [Buspar] 30 mg PO BID 08/06/15 [History] Atropine/Diphenoxylate [Lomotil 0.025-2.5 MG] 1 tab PO QID PRN 09/19/16 [History ] Nystatin 1 applic TOP TID PRN 09/19/16 [History] Ondansetron [Zofran Odt] 4 mg PO Q6H PRN 09/19/16 [History] Lidocaine 1 each TP ASDIRECTED 12/22/16 [History] Pregabalin [Lyrica] 50 mg PO TID 12/22/16 [History] Past Medical History HEENT History: Reports: Allergic Rhinitis Cardiovascular History: Reports: CAD, High Cholesterol Respiratory History: Reports: None Gastrointestinal History: Reports: Chronic Diarrhea, Irritable Bowel Syndrome Genitourinary History: Reports: Other (See Below) Other Genitourinary History: HPV +. 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 HIP BURSITIS Neurological History: Reports: Migraines, Other (See Below) Other Neuro History: LUMBAR DISC HERNIATION. SI PAIN Psychiatric History: Reports: Addiction, Anxiety, Depression, Eating Disorders Endocrine/Metabolic History: Reports: Diabetes, Type II, Obesity/BMI 30+ Other Endocrine/Metabolic History: IFG Hematologic History: Reports: Other (See Below) Other Hematologic History: + HEP C ANITIBODY Immunologic History: Reports: None Oncologic (Cancer) History: Reports: None Dermatologic History: Reports: None - Infectious Disease History Infectious Disease History: Reports: Chicken Pox - Past Surgical History GI Surgical History: Reports: Bariatric Procedure, Cholecystectomy Female Surgical History: Reports: Tubal Ligation Neurological Surgical History: Reports: Lumbar Spine, Spinal Fusion Musculoskeletal Surgical History: Reports: Other (See Below) Social & Family History - Family History Family Medical History: Noncontributory - Tobacco Use Smoking Status *Q: Former Smoker Years of Tobacco use: 5 Packs/Tins Daily: 1 Used Tobacco, but Quit: Yes Month Tobacco Last Used: ? Second Hand Smoke Exposure: No - Alcohol Use Days Per Week of Alcohol Use: 0 - Recreational Drug Use Recreational Drug Use: No Drug Use in Last 12 Months: No Recreational Drug Type: Reports: Cocaine, Marijuana/Hashish Recreational Drug Use Frequency: Not Used In Over 1 Year ED ROS GENERAL - Review of Systems Review Of Systems: See Below Constitutional: Reports: No Symptoms HEENT: Reports: No Symptoms Respiratory: Reports: No Symptoms Cardiovascular: Reports: No Symptoms Endocrine: Reports: No Symptoms GI/Abdominal: Reports: Abdominal Pain : Reports: Frequency, Incontinence Musculoskeletal: Reports: No Symptoms Skin: Reports: No Symptoms Neurological: Reports: No Symptoms Psychiatric: Reports: No Symptoms Hematologic/Lymphatic: Reports: No Symptoms Immunologic: Reports: No Symptoms ED EXAM, GI/ABD - Physical Exam Exam: See Below Exam Limited By: No Limitations General Appearance: Alert, WD/WN, No Apparent Distress Eyes: Bilateral: EOMI Ears: Normal TMs Throat/Mouth: Normal Inspection, Normal Oropharynx, No Airway Compromise Head: Atraumatic, Normocephalic Neck: Normal Inspection, Supple, Non-Tender, Full Range of Motion Respiratory/Chest: No Respiratory Distress, Lungs Clear, Normal Breath Sounds, No Accessory Muscle Use, Chest Non-Tender Cardiovascular: Normal Peripheral Pulses, Regular Rate, Rhythm, No Edema, No Murmur GI/Abdominal Exam: Normal Bowel Sounds, Soft, Tender (tender bilateral lower quadrants) Back Exam: CVA Tenderness (L), CVA Tenderness (R) Extremities: Normal Inspection, Normal Range of Motion, Non-Tender, Normal Capillary Refill Neurological: Alert, Oriented, CN II-XII Intact, Normal Cognition, Normal Gait, Normal Reflexes, No Motor/Sensory Deficits Psychiatric: Normal Affect, Normal Mood, Flat Affect Lymphatic: No Adenopathy Course - Orders/Labs/Meds Orders: Active Orders 24 hr Category Date Time Status URINALYSIS W/MICROSCOPIC [UA W/MICROSCOPIC] [URIN] Stat Lab 03/31/17 11:01 Ordered - Re-Assessments/Exams Free Text/Narrative Re-Assessment/Exam: 03/31/17 12:46 abdominal x-rays interpreted with left calcified adrenal mass. this is consistent with prior studies. No stones, bowel obstruction, free air, constipation. Departure - Departure Time of Disposition: 12:43 Disposition: Home, Self-Care 01 Condition: Good Clinical Impression: Abdominal pain Qualifiers: Abdominal location: generalized Qualified Code(s): R10.84 - Generalized abdominal pain - Discharge Information Instructions: Abdominal Pain, Adult, [id number] Forms: ED Department Discharge Additional Instructions: Follow up with Kellen to see if she will order a pelvic or transvaginal ultrasound. The ultrasound technicians are here again this week on . You also have a calcified mass on the adrenal gland, discuss with her if there is a watch and see mass, or if there is something you can do for it. This is not likely the cause of your pain. Your x-ray, urine, and blood work were all unremarkable. You sodium was a bit low, try to eat a little more salt in your diet. I did not order additional CT as you have had an abdominal CT in December, as well as in January both showing nothing that would indicate a true emergency condition for the abdominal pain you are having. Alternate tylenol, and aleve. Take no more than 2 Aleve per day, take as much as 4,000 mg of tylenol daily. I would prefer if you took closer to 3,000 mg to protect your liver. You may also use a heating pad. This does sometimes help. Please call with any questions or concerns. - Problem List & Annotations (1) Abdominal pain SNOMED Code(s): 99808850 Code(s): R10.9 - UNSPECIFIED ABDOMINAL PAIN Status: Acute Priority: Low Current Visit: Yes Qualifiers: Abdominal location: lower abdomen, unspecified Qualified Code(s): R10.30 - Lower abdominal pain, unspecified - Problem List Review Problem List Initiated/Reviewed/Updated: Yes - My Orders Last 24 Hours: My Active Orders 03/31/17 11:01 URINALYSIS W/MICROSCOPIC [UA W/MICROSCOPIC] [URIN] Stat - Assessment/Plan Last 24 Hours: My Active Orders 03/31/17 11:01 URINALYSIS W/MICROSCOPIC [UA W/MICROSCOPIC] [URIN] Stat Assessment:: bilateral lower abdominal pain Plan: Follow up with Kellen to see if she will order a pelvic or transvaginal ultrasound. The ultrasound technicians are here again this week on . Your x-ray, urine, and blood work were all unremarkable. You sodium was a bit low, try to eat a little more salt in your diet. I did not order additional CT as you have had an abdominal CT in December, as well as in January both showing nothing that would indicate a true emergency condition for the abdominal pain you are having. Alternate tylenol, and aleve. Take no more than 2 Aleve per day, take as much as 4,000 mg of tylenol daily. I would prefer if you took closer to 3,000 mg to protect your liver. You may also use a heating pad. This does sometimes help. Please call with any questions or concerns.
[2017-03-31 11:40] VITALS: BP 149/96
[2017-03-31 11:44] LABS: CHLORIDE,CL 103 mmol/L (98-107); SODIUM,NA 130 mmol/L (136-145)
== END 2017-03-31 13:00 | disposition home or self-care (01) ==
LOC: VM.ED 10:51
DX: R10.84 Generalized abdominal pain (principal); E11.9 Type 2 diabetes mellitus without complications; I25.10 Atherosclerotic heart disease of native coronary artery without angina pectoris; E78.00 Pure hypercholesterolemia, unspecified; M19.90 Unspecified osteoarthritis, unspecified site; G43.909 Migraine, unspecified, not intractable, without status migrainosus; F41.9 Anxiety disorder, unspecified; F32.9 Major depressive disorder, single episode, unspecified; E66.9 Obesity, unspecified; Z79.899 Other long term (current) drug therapy; Z87.891 Personal history of nicotine dependence; Z88.6 Allergy status to analgesic agent; Z88.8 Allergy status to other drugs, medicaments and biological substances
CPT/HCPCS: 36415; 74020; 80048; 81001; 85025; 86140; 99284

== ENCOUNTER 2017-09-13 10:45 | Emergency (ER) | payer BC, MEDICAID ==
[2017-09-13 11:04] VITALS: BP 139/89
--- NOTE | 2017-09-13 11:12 | EDM.PDOC ---
ED HPI GENERAL MEDICAL PROBLEM - General Chief Complaint: Abdominal Pain Stated Complaint: ABDOMINAL PAIN Time Seen by Provider: 09/13/17 10:58 Source of Information: Reports: Patient History Limitations: Reports: No Limitations - History of Present Illness INITIAL COMMENTS - FREE TEXT/NARRATIVE: Patient comes into the emergency Department with a 2-3 month history of lower pelvic discomfort especially with intercourse. Patient says she has some vaginal discharge and more mucous type and rollins in color-she denies any foul smell. The pt does have constant pressure on bilateral sides of her lower abdominal cavity along with chills and sweats every now and again. She states that she is only one sexual partner in the last year and has had STD testing within the last 6 months. It is monogamous relationship. Patient states that her partner are are not always cleaned prior to having sexual intercourse and the discomfort is beginning to increase and she feels like she is constantly having cramps. Onset: Gradual Duration: Getting Worse Quality: Reports: Burning, Dull, Pressure Upper Abdomen Pain Score (Numeric/FACES): 8 - Related Data Allergies Allergy/AdvReac Type Severity Reaction Status Date / Time scopolamine Allergy Mild Rash Verified 01/26/17 17:36 aspirin Allergy Unknown Other Verified 01/26/17 17:36 ketorolac [From Toradol] Allergy Cannot Verified 09/13/17 10:57 Remember Home Meds: Home Meds Amitriptyline [Elavil] 50 mg PO BEDTIME 09/20/13 [History] Multivitamin [Multi-Vitamin Daily] 1 tab PO DAILY 09/20/13 [History] DULoxetine [Cymbalta] 90 mg PO DAILY 03/20/14 [History] Baclofen [Lioresal] 20 mg PO TID 08/06/15 [History] Calcium Carb & Citrate/Vit D3 [Citracal + D ER] 1 each PO BID 08/06/15 [History] Cholecalciferol (Vitamin D3) [Vitamin D3] 2,000 unit PO DAILY 08/06/15 [History] Cyanocobalamin (Vitamin B12) [Vitamin B12] 500 mcg PO DAILY 08/06/15 [History] Dicyclomine [Bentyl] 10 mg PO QIDACANDBED 08/06/15 [History] Estrogen,Con/M-Progest Acet [Prempro 0.45-1.5 MG] 1 each PO DAILY 08/06/15 [ History] Ferrous Sulfate [Iron Supplement] 325 mg PO DAILY 08/06/15 [History] Magnesium 500 mg PO DAILY 08/06/15 [History] busPIRone [Buspar] 30 mg PO BID 08/06/15 [History] Atropine/Diphenoxylate [Lomotil 0.025-2.5 MG] 1 tab PO QID PRN 09/19/16 [History ] Nystatin 1 applic TOP TID PRN 09/19/16 [History] Ondansetron [Zofran Odt] 4 mg PO Q6H PRN 09/19/16 [History] Lidocaine 1 each TP ASDIRECTED 12/22/16 [History] Pregabalin [Lyrica] 75 mg PO TID 12/22/16 [History] Past Medical History HEENT History: Reports: Allergic Rhinitis Cardiovascular History: Reports: CAD, High Cholesterol Respiratory History: Reports: None Gastrointestinal History: Reports: Chronic Diarrhea, Irritable Bowel Syndrome Genitourinary History: Reports: Other (See Below) Other Genitourinary History: HPV +. 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 HIP BURSITIS Neurological History: Reports: Migraines, Other (See Below) Other Neuro History: LUMBAR DISC HERNIATION. SI PAIN Psychiatric History: Reports: Addiction, Anxiety, Depression, Eating Disorders Endocrine/Metabolic History: Reports: Diabetes, Type II, Obesity/BMI 30+ Other Endocrine/Metabolic History: IFG Hematologic History: Reports: Other (See Below) Other Hematologic History: + HEP C ANITIBODY Immunologic History: Reports: None Oncologic (Cancer) History: Reports: None Dermatologic History: Reports: None - Infectious Disease History Infectious Disease History: Reports: Chicken Pox - Past Surgical History GI Surgical History: Reports: Bariatric Procedure, Cholecystectomy Female Surgical History: Reports: Tubal Ligation Neurological Surgical History: Reports: Lumbar Spine, Spinal Fusion Musculoskeletal Surgical History: Reports: Other (See Below) Social & Family History - Family History Family Medical History: Noncontributory - Tobacco Use Smoking Status *Q: Former Smoker Years of Tobacco use: 5 Packs/Tins Daily: 1 Used Tobacco, but Quit: Yes Month Tobacco Last Used: ? Second Hand Smoke Exposure: No - Alcohol Use Days Per Week of Alcohol Use: 0 - Recreational Drug Use Recreational Drug Use: No Drug Use in Last 12 Months: No Recreational Drug Type: Reports: Cocaine, Marijuana/Hashish Recreational Drug Use Frequency: Not Used In Over 1 Year ED ROS GENERAL - Review of Systems Review Of Systems: See Below Constitutional: Reports: No Symptoms HEENT: Reports: No Symptoms Respiratory: Reports: No Symptoms Cardiovascular: Reports: No Symptoms Endocrine: Reports: No Symptoms GI/Abdominal: Reports: No Symptoms : Reports: Discharge, Other (painful intercourse) Skin: Reports: No Symptoms Neurological: Reports: No Symptoms Psychiatric: Reports: No Symptoms ED EXAM, RENAL/ - Physical Exam Exam: See Below Exam Limited By: No Limitations General Appearance: Alert, WD/WN, No Apparent Distress Respiratory/Chest: No Respiratory Distress, No Accessory Muscle Use GI/Abdominal: Normal Bowel Sounds, Soft, Non-Tender, No Distention, No Abnormal Bruit, No Mass, Pelvis Stable, Guarding (suprapubic region ), Tender ( suprapubic region ) Back Exam: Normal Inspection, Full Range of Motion Course - Vital Signs Last Recorded V/S: Last Vital Signs Temp 36.6 C 09/13/17 10:45 Pulse 77 09/13/17 10:45 Resp 18 09/13/17 10:45 BP 139/89 09/13/17 10:45 Pulse Ox - Orders/Labs/Meds Orders: Active Orders 24 hr Category Date Time Status metroNIDAZOLE [Take Home: metroNIDAZOLE 500 MG, 4 Tab Med 09/13/17 11:04 Once Pack] 1 packet PO ONETIME ONE Medication Orders Metronidazole (Take Home: Metronidazole 500 Mg, 4 Tab Pack) 1 packet PO ONETIME ONE Stop: 09/13/17 11:05 Meds: Medications Generic Name Dose Route Start Last Admin Trade Name Freq PRN Reason Stop Dose Admin Metronidazole 1 packet 09/13/17 11:04 Take Home: Metronidazole 500 Mg, 4 Tab Pack PO 09/13/17 11:05 ONETIME ONE Departure - Departure Time of Disposition: 11:05 Disposition: Home, Self-Care 01 Condition: Good Clinical Impression: Vaginitis Qualifiers: Chronicity: acute Qualified Code(s): N76.0 - Acute vaginitis - Discharge Information Instructions: Vaginitis, [id number] Additional Instructions: pelvic rest is suggested for 7 days Ensure both you and your partner are showered prior to any sexual activity wear cotton underwear and non tightening pants increase water intake Recommended to take a probiotic while on the medication Take prescription as prescribed. Follow up with OBGYN if not better within 2 weeks Yearly women physicals are recommended - My Orders Last 24 Hours: My Active Orders 09/13/17 11:04 metroNIDAZOLE [Take Home: metroNIDAZOLE 500 MG, 4 Tab Pack] 1 packet PO ONETIME ONE - Assessment/Plan Last 24 Hours: My Active Orders 09/13/17 11:04 metroNIDAZOLE [Take Home: metroNIDAZOLE 500 MG, 4 Tab Pack] 1 packet PO ONETIME ONE
[2017-09-13] MEDS: Take Home: metroNIDAZOLE 500 MG Tab, 4 Tab Pack PO ONE (11:14)
== END 2017-09-13 11:18 | disposition home or self-care (01) ==
LOC: VM.ED 10:45
DX: N76.0 Acute vaginitis (principal); E78.00 Pure hypercholesterolemia, unspecified; I25.10 Atherosclerotic heart disease of native coronary artery without angina pectoris; E11.9 Type 2 diabetes mellitus without complications; Z88.6 Allergy status to analgesic agent; Z88.8 Allergy status to other drugs, medicaments and biological substances; Z79.899 Other long term (current) drug therapy; Z87.891 Personal history of nicotine dependence; Z90.49 Acquired absence of other specified parts of digestive tract; Z98.51 Tubal ligation status
CPT/HCPCS: 99283; A9270-GY

== ENCOUNTER 2020-06-27 14:10 | Emergency (ER) | payer MEDICAID ==
[2020-06-27] MEDS ORDERED: GI Cocktail Oral Solution 30 ML PO ONE (14:25)
--- NOTE | 2020-06-27 14:25 | EDM.PDOC ---
ED HPI GENERAL MEDICAL PROBLEM - General Stated Complaint: ABDOMINAL PAIN Time Seen by Provider: 06/27/20 14:12 Source of Information: Reports: Patient History Limitations: Reports: No Limitations - History of Present Illness INITIAL COMMENTS - FREE TEXT/NARRATIVE: Patient comes emergency department today from home with complaints of epigastric abdominal spasms. This patient has a long history of what she relates as stomach spasms in the epigastric region following her gastric bypass in 2013. About 2 to 3 days a week she has the spasms in her stomach that resolved on their own. Today it is lasted quite a bit longer and is quite as uncomfortable. Her pain is lasted about an hour and a half prior to arrival. Typically last for about 10 to 15 minutes and resolves on its own. She has been evaluated for this multiple times without any findings. She has no fever no chills. No nausea no vomiting. No chest pain no shortness of breath or difficulty breathing. No cough or congestion. She denies any other pain to her abdomen other than the epigastric region. No hematuria dysuria or urinary frequency. No black or tarry stools. No weakness dizziness lightheadedness. She has tried some ibuprofen for the pain without resolution. No Covid exposure no Covid symptoms. Abdomen Pain Score (Numeric/FACES): 2 - Related Data Allergies Allergy/AdvReac Type Severity Reaction Status Date / Time scopolamine Allergy Mild Rash Verified 06/27/20 18:33 aspirin Allergy Unknown Other Verified 06/27/20 18:33 ketorolac [From Toradol] Allergy Cannot Verified 06/27/20 18:33 Remember latex Allergy Rash Verified 06/27/20 18:33 Home Meds: Home Meds buPROPion [buPROPion XL] 150 mg PO DAILY 09/13/17 [History] Sertraline [Zoloft] 200 mg PO DAILY 10/02/19 [History] Aspirin [Halfprin] 81 mg PO DAILY 10/26/19 [History] Clopidogrel [Plavix] 75 mg PO DAILY 10/26/19 [History] atorvaSTATin [Lipitor] 40 mg PO DAILY 10/26/19 [History] Clobetasol/Emollient [Temovate E 0.05% Crm] 30 gm TOP BID 06/26/20 [History] L.acidoph,Paracasei, B.lactis [Probiotic] 1 each PO DAILY 06/26/20 [History] Nitroglycerin [Nitrostat] 0.4 mg SL ASDIRECTED PRN 06/26/20 [History] cloNIDine HCL [Catapres] 0.1 mg PO DAILY 06/26/20 [History] dilTIAZem HCL [Cardizem] 30 mg PO DAILY 06/26/20 [History] rOPINIRole [Requip] 1 mg PO TID 06/26/20 [History] Dicyclomine [Bentyl] 20 mg PO QID PRN #12 tablet 06/27/20 [Rx] Past Medical History HEENT History: Reports: Allergic Rhinitis Cardiovascular History: Reports: CAD, High Cholesterol, Hypertension, [place], Stents Other Cardiovascular History: Coronary atherosclerosis Respiratory History: Reports: None, Other (See Below) Other Respiratory History: Former smoker Gastrointestinal History: Reports: Chronic Diarrhea, Irritable Bowel Syndrome, Other (See Below) Other Gastrointestinal History: Pelvic pain Genitourinary History: Reports: Other (See Below), Urinary Incontinence Other Genitourinary History: Cystocele - midline FRAME ALIGNER History: Reports: Other (See Below), Other FRAME ALIGNER History: Uterine leiomyoma Musculoskeletal History: Reports: Arthritis, Back Pain, Chronic, Other (See Below), Osteoarthritis Other Musculoskeletal History: trigger finger. HIP BURSITIS Neurological History: Reports: Migraines, Neuropathy, Diabetic, Other (See Below) Other Neuro History: LUMBAR DISC HERNIATION. SI PAIN Psychiatric History: Reports: Addiction, Anxiety, Depression, Eating Disorders, Other (See Below), PTSD Other Psychiatric History: History of alcohol abuse. Broken pain medication agreement. Maladaptive health behaviors affecting medical condition. Methamphetamin dependence Endocrine/Metabolic History: Reports: Diabetes, Type II, Obesity/BMI 30+ Other Endocrine/Metabolic History: IFG Hematologic History: Reports: Other (See Below) Other Hematologic History: + HEP C ANITIBODY Immunologic History: Reports: None Oncologic (Cancer) History: Reports: None Dermatologic History: Reports: None - Infectious Disease History Infectious Disease History: Reports: Chicken Pox - Past Surgical History Cardiovascular Surgical History: Reports: Coronary Artery Stent, None GI Surgical History: Reports: Bariatric Procedure, Cholecystectomy Social & Family History - Family History Family Medical History: No Pertinent Family History ED ROS GENERAL - Review of Systems Review Of Systems: Comprehensive ROS is negative, except as noted in HPI. ED EXAM, GI/ABD - Physical Exam Exam: See Below Exam Limited By: No Limitations General Appearance: Alert, WD/WN, No Apparent Distress Eyes: Bilateral: EOMI Ears: Normal External Exam Nose: Normal Inspection Throat/Mouth: Normal Inspection Head: Atraumatic, Normocephalic Neck: Normal Inspection, Supple Respiratory/Chest: No Respiratory Distress, Lungs Clear, Normal Breath Sounds, Chest Non-Tender Cardiovascular: Normal Peripheral Pulses, Regular Rate, Rhythm GI/Abdominal Exam: Normal Bowel Sounds, Soft, No Organomegaly, No Distention, No Abnormal Bruit, No Mass, Tender (Some mild tenderness in the epigastric region without guarding rebound. No peritoneal signs. No distention.) (Female) Exam: Deferred Rectal (Female) Exam: Deferred Back Exam: Normal Inspection, Full Range of Motion Extremities: Normal Inspection, No Pedal Edema Neurological: Alert, Oriented, Normal Cognition, No Motor/Sensory Deficits Psychiatric: Normal Affect, Normal Mood Skin Exam: Warm, Dry, Intact, Normal Color, No Rash Course - Vital Signs Last Recorded V/S: Last Vital Signs Temp 97.6 F 06/27/20 14:15 Pulse 71 06/27/20 18:17 Resp 16 06/27/20 18:17 BP 123/66 06/27/20 18:17 Pulse Ox 99 06/27/20 18:17 - Orders/Labs/Meds Orders: Active Orders 24 hr Category Date Time Status Peripheral IV Insertion Adult [OM.PC] Stat Oth 06/27/20 14:49 Ordered Labs: Laboratory Tests 06/27/20 06/27/20 06/27/20 Range/Units 15:00 15:00 15:00 WBC 9.4 (4.0-10.0) x10^3/uL RBC 4.50 (4.00-5.50) x10^6/uL Hgb 10.8 L (12.0-16.0) g/dL Hct 35.7 (33.0-47.0) % MCV 79.3 D (78.0-93.0) fL MCH 24.0 L (26.0-32.0) pg MCHC 30.3 L (32.0-36.0) g/dL RDW Coeff of Ever 16.0 H (10.0-15.0) % Plt Count 329 D (130-400) x10^3/uL Neut % (Auto) 74.3 (50.0-80.0) % Lymph % (Auto) 17.6 L (25.0-50.0) % [place] % (Auto) 7.0 (2.0-11.0) % Eos % (Auto) 1.0 (0.0-4.0) % Baso % (Auto) 0.1 L (0.2-1.2) % Sodium 140 (136-145) mmol/L Potassium 4.0 (3.5-5.1) mmol/L Chloride 104 (98-107) mmol/L Carbon Dioxide 28 (21-32) mmol/L Anion Gap 12.0 (10-20) mmol/L BUN 18 (7-18) mg/dL Creatinine 0.9 (0.55-1.02) mg/dL Est Cr Clr Drug Dosing TNP Estimated GFR (MDRD) > 60 Glucose 112 H (74-106) mg/dL Lactic Acid 1.6 (0.4-2.0) mmol/L Calcium 8.7 (8.5-10.1) mg/dL Corrected Calcium 9.34 (8.5-10.1) mg/dL Total Bilirubin 0.6 (0.2-1.0) mg/dL AST 201 H (15-37) U/L ALT 95 H (14-59) U/L Alkaline Phosphatase 167 H (46-116) U/L C-Reactive Protein 0.5 (<=0.9) mg/dL Total Protein 7.0 (6.4-8.2) g/dL Albumin 3.2 L (3.4-5.0) g/dL Globulin 3.8 Albumin/Globulin Ratio 0.84 Urine Color (YELLOW) Urine Appearance (CLEAR) Urine pH (5.0-8.0) Ur Specific [place] Urine Protein (NEGATIVE) mg/dL Urine Glucose (UA) (NEGATIVE) mg/dL Urine Ketones (NEGATIVE) mg/dL Urine Occult Blood (NEGATIVE) Urine Nitrite (NEGATIVE) Urine Bilirubin (NEGATIVE) Urine Urobilinogen (0.2) EU/dL Ur Leukocyte Esterase (NEGATIVE) 06/27/20 Range/Units 16:00 WBC (4.0-10.0) x10^3/uL RBC (4.00-5.50) x10^6/uL Hgb (12.0-16.0) g/dL Hct (33.0-47.0) % MCV (78.0-93.0) fL MCH (26.0-32.0) pg MCHC (32.0-36.0) g/dL RDW Coeff of Ever (10.0-15.0) % Plt Count (130-400) x10^3/uL Neut % (Auto) (50.0-80.0) % Lymph % (Auto) (25.0-50.0) % [place] % (Auto) (2.0-11.0) % Eos % (Auto) (0.0-4.0) % Baso % (Auto) (0.2-1.2) % Sodium (136-145) mmol/L Potassium (3.5-5.1) mmol/L Chloride (98-107) mmol/L Carbon Dioxide (21-32) mmol/L Anion Gap (10-20) mmol/L BUN (7-18) mg/dL Creatinine (0.55-1.02) mg/dL Est Cr Clr Drug Dosing Estimated GFR (MDRD) Glucose (74-106) mg/dL Lactic Acid (0.4-2.0) mmol/L Calcium (8.5-10.1) mg/dL Corrected Calcium (8.5-10.1) mg/dL Total Bilirubin (0.2-1.0) mg/dL AST (15-37) U/L ALT (14-59) U/L Alkaline Phosphatase (46-116) U/L C-Reactive Protein (<=0.9) mg/dL Total Protein (6.4-8.2) g/dL Albumin (3.4-5.0) g/dL Globulin Albumin/Globulin Ratio Urine Color Yellow (YELLOW) Urine Appearance Cloudy H (CLEAR) Urine pH 6.5 (5.0-8.0) Ur Specific [place] 1.020 Urine Protein Negative (NEGATIVE) mg/dL Urine Glucose (UA) Negative (NEGATIVE) mg/dL Urine Ketones Negative (NEGATIVE) mg/dL Urine Occult Blood Negative (NEGATIVE) Urine Nitrite Negative (NEGATIVE) Urine Bilirubin Negative (NEGATIVE) Urine Urobilinogen 1.0 (0.2) EU/dL Ur Leukocyte Esterase Negative (NEGATIVE) Meds: Medications Discontinued Medications Generic Name Dose Route Start Last Admin Trade Name Freq PRN Reason Stop Dose Admin Al Hydroxide/Mg Hydroxide 30 ml 06/27/20 14:25 06/27/20 14:31 Gi Cocktail PO 06/27/20 14:26 30 ml ONETIME ONE Administration Dicyclomine HCl 20 mg 06/27/20 16:56 06/27/20 17:10 Bentyl IM 06/27/20 16:57 20 mg ONETIME ONE Administration Hydromorphone HCl 0.5 mg 06/27/20 15:05 06/27/20 15:14 Dilaudid IV 06/27/20 15:06 0.5 mg ONETIME ONE Administration Hydromorphone HCl 0.5 mg 06/27/20 16:56 06/27/20 17:05 Dilaudid IV 06/27/20 16:57 0.5 mg ONETIME ONE Administration Lactated Ringer's 1,000 mls @ 999 mls/hr 06/27/20 15:05 06/27/20 15:15 Ringers, Lactated IV 06/27/20 16:05 999 mls/hr ONETIME ONE Administration Iopamidol 100 ml 06/27/20 15:33 06/27/20 16:01 Isovue-300 (61%) IVPUSH 06/27/20 15:34 100 ml ONETIME ONE Administration Ondansetron HCl 4 mg 06/27/20 15:05 06/27/20 15:12 Zofran IV 06/27/20 15:06 4 mg ONETIME ONE Administration Sodium Chloride 10 ml 06/27/20 14:49 Saline Flush FLUSH ASDIRECTED PRN Keep Vein Open - Radiology Interpretation Free Text/Narrative:: CT scan abdomen pelvis with IV contrast per radiology shows no acute findings in the abdomen or pelvis. Gastric bypass with small sliding-type hiatal hernia. Fluid within the hernia sac suggesting possible reflux. Multiple chronic findings in the abdomen pelvis including partially calcified hypodense left adrenal mass without significant change from the prior examination. Cystic structure posterior to the left proximal femur inferior to the femoral acetabular articulation. This could represent bursal effusion or ganglion cyst. MRI of the left hip is recommended for further evaluation. - Re-Assessments/Exams Free Text/Narrative Re-Assessment/Exam: 06/27/20 17:15 Initially the patient was given a GI cocktail without really much improvement of what she relates as stomach spasms. IV LR 1 L wide open. Benadryl for pain as well as Zofran for nausea. Laboratory evaluation is rather unremarkable other than a mild elevation of her liver enzymes which is chronic for her. These are really not that far out of her normal range. Lactic acid is negative of CBC with a normal WBC. CT scan of the abdomen pelvis with some chronic findings but no acute findings in the abdomen or pelvis prior She continued to have the epigastric spasms that she related. She was given some Bentyl IM as well as Dilaudid IV. Patient had complete resolution of her pain in her abdomen she feels much better. I will discharge her home with some Bentyl to use for these recurrent epigastric spasm. Follow-up with primary care if any concerns the next week or so return if anything new or worse. She is comfortable with this plan and her questions are answered. Departure - Departure Time of Disposition: 18:05 Disposition: Home, Self-Care 01 Clinical Impression: Abdominal pain Qualifiers: Abdominal location: lower abdomen, unspecified Qualified Code(s): R10.30 - Lower abdominal pain, unspecified - Discharge Information Prescriptions: Dicyclomine [Bentyl] 20 mg PO QID PRN #12 tablet PRN Reason: Abdominal Pain Instructions: Abdominal Pain, Adult, [id number], Pain Medicine Instructions, [id number] Referrals: Israel Abdalla NP [Primary Care Provider] - Forms: ED Department Discharge Additional Instructions: Rest Diet as tolerated. Bentyl 1 tablet 4 times a day as needed for abd spasms cramping. Rx to [facility]. Return to the ED if new or worsening symptoms. Follow up with PCP in the next 4-6 days if any problems. Sepsis Event Note (ED) - Focused Exam Vital Signs: Vital Signs Temp Pulse Resp BP Pulse Ox 06/27/20 18:17 71 16 123/66 99 06/27/20 17:14 72 16 134/76 96 06/27/20 16:34 75 16 130/70 06/27/20 15:13 71 16 146/77 H 98 06/27/20 14:15 97.6 F 77 18 151/86 H 99 - My Orders Last 24 Hours: My Active Orders 06/27/20 14:49 Peripheral IV Insertion Adult [OM.PC] Stat - Assessment/Plan Last 24 Hours: My Active Orders 06/27/20 14:49 Peripheral IV Insertion Adult [OM.PC] Stat
[2020-06-27] MEDS ORDERED: Sodium Chloride 0.9% 10 ML Syringe FLUSH PRN (14:49)
[2020-06-27] MEDS ORDERED: HYDROmorphone 0.5 MG/0.5 ML Syringe IV ONE ×2 (15:05→16:56)
[2020-06-27] MEDS ORDERED: Lactated Ringers 1,000 ML IV ONE (15:05)
[2020-06-27] MEDS ORDERED: Ondansetron 4 MG/2 ML SDV IV ONE (15:05)
[2020-06-27] MEDS ORDERED: Iopamidol 612 MG/ML 100 ML Bottle IVPUSH ONE (15:33)
[2020-06-27 15:36] LABS: CHLORIDE,CL 104 mmol/L (98-107); SODIUM,NA 140 mmol/L (136-145)
--- NOTE | 2020-06-27 16:32 | CT ---
[id number] CT/CT Abdomen Pelvis W IV EXAM: CT Abdomen Pelvis W IV CLINICAL DATA: GASTRIC BYPASS, ABDOMINAL PAIN EPIGASTRIC REGION. COMPARISON STUDY: 2017. FINDINGS: Persistent partially calcified hypodense mass in the left adrenal gland. Overall, no significant change in size or appearance compared to prior examination in 2017. Postsurgical change from gastric bypass. Small sliding-type hiatus hernia. Cholecystectomy. Postcholecystectomy dilation of the biliary ductal system, similar to the prior examination. Right adrenal gland, pancreas, and kidneys are unremarkable. Stable appearance of a calcified mesenteric mass in the right lower quadrant measuring up to 7 mm. Colonic diverticulosis. No evidence of acute diverticulitis. Appendix is normal. No small bowel obstruction or inflammation. No lymphadenopathy in the abdomen or pelvis. No free fluid collections. Postsurgical post surgical change from discectomy and fusion at L5-S1. Partial ankylosis across the disc space. Hardware intact. Incidentally noted in the deep soft tissues posterior to the proximal left femur is a cystic structure. Finding is nonspecific and possibly bursal effusion versus ganglion arising from the left femoroacetabular articulation. IMPRESSION: No acute findings in the abdomen or pelvis. Gastric bypass with small sliding-type hiatus hernia. Fluid within the hernia sac, suggesting possible reflux. Multiple chronic findings in the abdomen/pelvis, including partially calcified hypodense left adrenal mass without significant change from the prior examination and described in detail above. Cystic structure posterior to the left proximal femur inferior to the femoroacetabular articulation. This could represent bursal effusion or ganglion cyst. MRI of the left hip is recommended for further evaluation. Eric Maldonado MD 06/27/20 [id number] Thank you for allowing us to participate in the care of your patient.
[2020-06-27] MEDS ORDERED: Dicyclomine 20 MG/2 ML SDV IM ONE (16:56)
[2020-06-27 18:44] VITALS: BP 123/66; PULSE 71
== END 2020-06-27 18:19 | disposition home or self-care (01) ==
LOC: VM.ED 14:10
DX: R10.30 Lower abdominal pain, unspecified (principal); I25.10 Atherosclerotic heart disease of native coronary artery without angina pectoris; E78.00 Pure hypercholesterolemia, unspecified; I10 Essential (primary) hypertension; I25.2 Old myocardial infarction; Z95.5 Presence of coronary angioplasty implant and graft; Z87.891 Personal history of nicotine dependence; M19.90 Unspecified osteoarthritis, unspecified site; E11.40 Type 2 diabetes mellitus with diabetic neuropathy, unspecified; F41.9 Anxiety disorder, unspecified; F32.9 Major depressive disorder, single episode, unspecified; E66.9 Obesity, unspecified; Z68.27 Body mass index [BMI] 27.0-27.9, adult; Z88.6 Allergy status to analgesic agent; Z91.040 Latex allergy status; Z79.82 Long term (current) use of aspirin; Z79.02 Long term (current) use of antithrombotics/antiplatelets; Z79.899 Other long term (current) drug therapy
CPT/HCPCS: 74177; 80053; 81003; 83605; 85025; 86140; 96372; 96374; 96375; 96376; 99284; 99284-25; A9270-GY; J0500; J1170; J2405; J7120; Q9967

== ENCOUNTER 2020-11-26 03:23 | Emergency (ER) | payer MEDICAID ==
[2020-11-26] MEDS ORDERED: Sodium Chloride 0.9% 10 ML Syringe FLUSH PRN (03:24)
[2020-11-26] MEDS ORDERED: Aspirin 81 MG Tab.Chew PO ONE ×2 (03:26→03:34)
[2020-11-26] MEDS ORDERED: LORazepam 2 MG/ML SDV IVPUSH ONE (03:27)
--- NOTE | 2020-11-26 03:38 | EDM.PDOC ---
ED HPI GENERAL MEDICAL PROBLEM - General Time Seen by Provider: 11/26/20 03:23 Source of Information: Reports: Patient History Limitations: Reports: No Limitations - History of Present Illness INITIAL COMMENTS - FREE TEXT/NARRATIVE: Pt. presents to ER with complaints of chest and L arm pain as well as feeling anxious. Pt. states that she was at rest on the couch at onset of symptoms tonight, but states that she has been experiencing intermittent chest pain for over a week. She states that she took 3 nitro for it last night, and 2 nitro tonight. She states that this has not worked. Pt. states that the discomfort is present in her L shoulder as well. She denies any shortness of breath. No palpitations. Pt. admits to frequent meth use, both injecting and smoking, the last time being 1-2 days ago. She also smokes marijuana. Pt. states that she has stopped taking all of her medications approx. 3 months ago, including plavix and diltiazem. She is also on sertraline and bupropion, and stopped taking these as well. She felt that the medications were making her feel fatigued. Pt. has a history of CAD and has stents. She was seen in this ER and transferred several times for [place] in and October of 2019, at least one of which was an inferior STEMI as well as stenting of distal RCA. Pt. denies any cough or chest congestion. No fever or chills. No nausea, vomiting or diarrhea. She states that she feels very anxious tonight. Denies using methamphetamine today. Location: Reports: Chest, Upper Extremity, Left Quality: Reports: Ache Chest Pain Score (Numeric/FACES): 4 - Related Data Allergies Allergy/AdvReac Type Severity Reaction Status Date / Time scopolamine Allergy Mild Rash Verified 06/27/20 18:33 aspirin Allergy Unknown Other Verified 06/27/20 18:33 ketorolac [From Toradol] Allergy Cannot Verified 06/27/20 18:33 Remember latex Allergy Rash Verified 06/27/20 18:33 Home Meds: Home Meds buPROPion [buPROPion XL] 150 mg PO DAILY 09/13/17 [History] Sertraline [Zoloft] 200 mg PO DAILY 10/02/19 [History] Aspirin [Halfprin] 81 mg PO DAILY 10/26/19 [History] Clopidogrel [Plavix] 75 mg PO DAILY 10/26/19 [History] atorvaSTATin [Lipitor] 40 mg PO DAILY 10/26/19 [History] Clobetasol/Emollient [Temovate E 0.05% Crm] 30 gm TOP BID 06/26/20 [History] L.acidoph,Paracasei, B.lactis [Probiotic] 1 each PO DAILY 06/26/20 [History] Nitroglycerin [Nitrostat] 0.4 mg SL ASDIRECTED PRN 06/26/20 [History] cloNIDine HCL [Catapres] 0.1 mg PO DAILY 06/26/20 [History] dilTIAZem HCL [Cardizem] 30 mg PO DAILY 06/26/20 [History] rOPINIRole [Requip] 1 mg PO TID 06/26/20 [History] Dicyclomine [Bentyl] 20 mg PO QID PRN #12 tablet 06/27/20 [Rx] Past Medical History HEENT History: Reports: Allergic Rhinitis Cardiovascular History: Reports: CAD, High Cholesterol, Hypertension, [place], Stents Other Cardiovascular History: Coronary atherosclerosis Respiratory History: Reports: None, Other (See Below) Other Respiratory History: Former smoker Gastrointestinal History: Reports: Chronic Diarrhea, Irritable Bowel Syndrome, Other (See Below) Other Gastrointestinal History: Pelvic pain Genitourinary History: Reports: Other (See Below), Urinary Incontinence Other Genitourinary History: Cystocele - midline 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 HIP BURSITIS Neurological History: Reports: Migraines, Neuropathy, Diabetic, Other (See Below) Other Neuro History: LUMBAR DISC HERNIATION. SI PAIN Psychiatric History: Reports: Addiction, Anxiety, Depression, Eating Disorders, Other (See Below), PTSD Other Psychiatric History: History of alcohol abuse. Broken pain medication agreement. Maladaptive health behaviors affecting medical condition. Methamphetamin dependence Endocrine/Metabolic History: Reports: Diabetes, Type II, Obesity/BMI 30+ Other Endocrine/Metabolic History: IFG Hematologic History: Reports: Other (See Below) Other Hematologic History: + HEP C ANITIBODY Immunologic History: Reports: None Oncologic (Cancer) History: Reports: None Dermatologic History: Reports: None - Infectious Disease History Infectious Disease History: Reports: Chicken Pox - Past Surgical History Cardiovascular Surgical History: Reports: Coronary Artery Stent, None GI Surgical History: Reports: Bariatric Procedure, Cholecystectomy Social & Family History - Family History Family Medical History: No Pertinent Family History - Caffeine Use Caffeine Use: Reports: None ED ROS GENERAL - Review of Systems Review Of Systems: See Below Constitutional: Reports: No Symptoms HEENT: Reports: No Symptoms Respiratory: Reports: No Symptoms Cardiovascular: Reports: Chest Pain Endocrine: Reports: No Symptoms GI/Abdominal: Reports: No Symptoms : Reports: No Symptoms Musculoskeletal: Reports: No Symptoms Skin: Reports: No Symptoms Neurological: Reports: No Symptoms Psychiatric: Reports: Anxiety, Other (methamphetamine use, hx. depression and anxiety) Hematologic/Lymphatic: Reports: No Symptoms Immunologic: Reports: No Symptoms ED EXAM, GENERAL - Physical Exam Exam: See Below Exam Limited By: No Limitations General Appearance: Alert, WD/WN, No Apparent Distress Head: Atraumatic, Normocephalic Neck: Supple, Non-Tender Respiratory/Chest: No Respiratory Distress, Lungs Clear, Normal Breath Sounds, No Accessory Muscle Use, Chest Non-Tender Cardiovascular: Normal Peripheral Pulses, Regular Rate, Rhythm, No Edema, No JVD GI/Abdominal: Soft, Non-Tender, No Distention, No Mass (Female) Exam: Deferred Rectal (Female) Exam: Deferred Back Exam: Normal Inspection Extremities: Normal Inspection, Normal Range of Motion, Non-Tender, No Pedal Edema, Normal Capillary Refill Neurological: Alert, Oriented, CN II-XII Intact, Normal Cognition, Normal Gait, Normal Reflexes, No Motor/Sensory Deficits Psychiatric: Normal Affect, Normal Mood Skin Exam: Warm, Dry, Intact, Normal Color, No Rash #1 Interpretation Rhythm: NSR EKG Interpretation Comments: Q wave in II, II, AVF, consistent with history of inferior STEMI 2019. Course - Vital Signs Last Recorded V/S: Last Vital Signs Temp 36.6 C 11/26/20 03:23 Pulse 98 11/26/20 03:23 Resp 16 11/26/20 03:23 BP 148/90 H 11/26/20 03:23 Pulse Ox 98 11/26/20 03:23 - Orders/Labs/Meds Orders: Active Orders 24 hr Category Date Time Status EKG Documentation Completion [RC] STAT Care 11/26/20 03:25 Active Sodium Chloride 0.9% [Saline Flush] Med 11/26/20 03:24 Active 10 ml FLUSH ASDIRECTED PRN Peripheral IV Insertion Adult [OM.PC] Routine Oth 11/26/20 03:25 Ordered Medication Orders Sodium Chloride (Sodium Chloride 0.9% 10 Ml Syringe) 10 ml FLUSH ASDIRECTED PRN PRN Reason: Keep Vein Open Labs: Laboratory Tests 11/26/20 11/26/20 11/26/20 Range/Units 03:20 03:20 03:20 WBC 6.4 (4.0-10.0) x10^3/uL RBC 4.05 (4.00-5.50) x10^6/uL Hgb 10.6 L (12.0-16.0) g/dL Hct 32.8 L (33.0-47.0) % MCV 81.0 (78.0-93.0) fL MCH 26.2 (26.0-32.0) pg MCHC 32.3 (32.0-36.0) g/dL RDW Coeff of Ever 14.0 (10.0-15.0) % Plt Count 319 (130-400) x10^3/uL Neut % (Auto) 62.2 (50.0-80.0) % Lymph % (Auto) 27.2 (25.0-50.0) % Cecil % (Auto) 8.3 (2.0-11.0) % Eos % (Auto) 2.0 (0.0-4.0) % Baso % (Auto) 0.3 (0.2-1.2) % PT 9.9 (9.9-12.5) SEC INR 0.9 L (2.0-3.5) APTT 23.7 L (25.6-32.8) SEC Sodium 142 (136-145) mmol/L Potassium 3.3 L (3.5-5.1) mmol/L Chloride 108 H (98-107) mmol/L Carbon Dioxide 25 (21-32) mmol/L Anion Gap 12.3 (5-15) mmol/L BUN 17 (7-18) mg/dL Creatinine 0.9 (0.55-1.02) mg/dL Est Cr Clr Drug Dosing 61.17 mL/min Estimated GFR (MDRD) > 60 Glucose 81 (70-99) mg/dL Calcium 8.1 L (8.5-10.1) mg/dL Corrected Calcium 8.90 (8.5-10.1) mg/dL Magnesium 1.6 L (1.8-2.4) mg/dL Total Bilirubin 0.4 (0.2-1.0) mg/dL AST 31 (15-37) U/L ALT 47 (14-59) U/L Alkaline Phosphatase 162 H (46-116) U/L Troponin I High Sens 7 (<=51) ng/L Total Protein 6.6 (6.4-8.2) g/dL Albumin 3.0 L (3.4-5.0) g/dL Globulin 3.6 Albumin/Globulin Ratio 0.83 Meds: Medications Generic Name Dose Route Start Last Admin Trade Name Freq PRN Reason Stop Dose Admin Sodium Chloride 10 ml 11/26/20 03:24 Sodium Chloride 0.9% 10 Ml Syringe FLUSH ASDIRECTED PRN Keep Vein Open Discontinued Medications Generic Name Dose Route Start Last Admin Trade Name Freq PRN Reason Stop Dose Admin Aspirin 324 mg 11/26/20 03:26 11/26/20 03:32 Aspirin 81 Mg Tab.Chew PO 11/26/20 03:27 324 mg ONETIME ONE Administration Aspirin 324 mg 11/26/20 03:34 Aspirin 81 Mg Tab.Chew PO 11/26/20 03:35 ONETIME ONE Lorazepam 1 mg 11/26/20 03:27 11/26/20 03:33 Lorazepam 2 Mg/Ml Sdv IVPUSH 11/26/20 03:28 1 mg STAT ONE Administration - Re-Assessments/Exams Free Text/Narrative Re-Assessment/Exam: 11/26/20 04:29 Pt. was given aspirin 324mg PO She was given ativan 1mg IV. She reported that her chest pain was resolving, and stated that she felt "much better". Departure - Departure Time of Disposition: 04:30 Disposition: Home, Self-Care 01 Clinical Impression: Atypical chest pain, Methamphetamine abuse - Discharge Information Instructions: Generalized Anxiety Disorder, Adult, Nonspecific Chest Pain, Adult, [id number], Methamphetamines Use Disorder Referrals: Linda De La Cruz DO [Primary Care Provider] - Forms: ED Department Discharge Additional Instructions: Start taking your medications as prescribed. Stop using methamphetamine. This is very harmful, especially if you have heart problems. Recheck in clinic in 7-10 days, sooner if not gradually improving. Sepsis Event Note (ED) - Focused Exam Vital Signs: Vital Signs Temp Pulse Resp BP Pulse Ox 11/26/20 03:23 36.6 C 98 16 148/90 H 98 - Problem List Review Problem List Initiated/Reviewed/Updated: Yes - My Orders Last 24 Hours: My Active Orders 11/26/20 03:24 Sodium Chloride 0.9% [Saline Flush] 10 ml FLUSH ASDIRECTED PRN 11/26/20 03:25 EKG Documentation Completion [RC] STAT Peripheral IV Insertion Adult [OM.PC] Routine - Assessment/Plan Last 24 Hours: My Active Orders 11/26/20 03:24 Sodium Chloride 0.9% [Saline Flush] 10 ml FLUSH ASDIRECTED PRN 11/26/20 03:25 EKG Documentation Completion [RC] STAT Peripheral IV Insertion Adult [OM.PC] Routine Plan: Start taking your medications as prescribed. Stop using methamphetamine. This is very harmful, especially if you have heart problems. Recheck in clinic in 7-10 days, sooner if not gradually improving.
[2020-11-26 04:10] LABS: CHLORIDE,CL 108 mmol/L (98-107); SODIUM,NA 142 mmol/L (136-145)
[2020-11-26 04:16] LABS: ANION GAP 12.3 mmol/L (5-15)
[2020-11-26 04:20] LABS: PTT,PARTIAL THROMBOPLSTIN TIME 23.7 SEC (25.6-32.8)
[2020-11-26 04:43] VITALS: BP 160/94; PULSE 77
== END 2020-11-26 04:40 | disposition home or self-care (01) ==
LOC: VM.ED 03:23
DX: R07.89 Other chest pain (principal); M79.602 Pain in left arm; F15.10 Other stimulant abuse, uncomplicated; I25.10 Atherosclerotic heart disease of native coronary artery without angina pectoris; E78.00 Pure hypercholesterolemia, unspecified; I10 Essential (primary) hypertension; I25.2 Old myocardial infarction; M19.90 Unspecified osteoarthritis, unspecified site; E11.40 Type 2 diabetes mellitus with diabetic neuropathy, unspecified; E66.9 Obesity, unspecified; Z88.6 Allergy status to analgesic agent; Z91.040 Latex allergy status; Z91.048 Other nonmedicinal substance allergy status; Z79.82 Long term (current) use of aspirin; Z79.02 Long term (current) use of antithrombotics/antiplatelets; Z79.899 Other long term (current) drug therapy
CPT/HCPCS: 36415; 80053; 83735; 84484; 85025; 85610; 85730; 93005; 93010; 96374; 99284; 99285-25; A9270-GY; J2060

== ENCOUNTER 2021-01-23 09:59 | Emergency (ER) | payer MEDICAID ==
[2021-01-23] MEDS ORDERED: Orphenadrine 60 MG/2 ML Inj IM STA (10:22)
[2021-01-23] MEDS ORDERED: Ketorolac 30 MG/ML SDV IM ONE (10:22)
--- NOTE | 2021-01-23 10:30 | EDM.PDOC ---
ED HPI GENERAL MEDICAL PROBLEM - General Chief Complaint: Lower Extremity Injury/Pain Stated Complaint: PROBLEMS WITH KNEE Time Seen by Provider: 01/23/21 10:10 Source of Information: Reports: Patient History Limitations: Reports: No Limitations - History of Present Illness INITIAL COMMENTS - FREE TEXT/NARRATIVE: Patient comes emergency department today from the clinic for further evaluation of left knee pain. This patient has some kind of chronic waxing and waning left knee pain with some swelling. Usually last for about a week and it goes away on its own. For the last 3 weeks patient has had increased swelling and left knee pain. She denies any recent falls trauma or injury to her left knee. She also has some pain in the back of her knee. Pain is getting so severe that she has some pain that radiates down her leg and upper leg as well. No recent falls or injury to her back. She has not tried anything for pain at home today. She has been using Tylenol and ibuprofen. She made an appointment in the clinic today and went although she is allergic to Ketorolac the provider sent the patient to the Emergency department although she takes Ibuprofen regularly. She does have a history of coronary artery disease, type 2 diabetes methamphetamine use. Left Knee Pain Score (Numeric/FACES): 10 - Related Data Allergies Allergy/AdvReac Type Severity Reaction Status Date / Time scopolamine Allergy Mild Rash Verified 06/27/20 18:33 aspirin Allergy Unknown Other Verified 06/27/20 18:33 ketorolac [From Toradol] Allergy Cannot Verified 06/27/20 18:33 Remember latex Allergy Rash Verified 06/27/20 18:33 Home Meds: Home Meds buPROPion [buPROPion XL] 150 mg PO DAILY 09/13/17 [History] Sertraline [Zoloft] 200 mg PO DAILY 10/02/19 [History] Aspirin [Halfprin] 81 mg PO DAILY 10/26/19 [History] Clopidogrel [Plavix] 75 mg PO DAILY 10/26/19 [History] atorvaSTATin [Lipitor] 40 mg PO DAILY 10/26/19 [History] Clobetasol/Emollient [Temovate E 0.05% Crm] 30 gm TOP BID 06/26/20 [History] L.acidoph,Paracasei, B.lactis [Probiotic] 1 each PO DAILY 06/26/20 [History] Nitroglycerin [Nitrostat] 0.4 mg SL ASDIRECTED PRN 06/26/20 [History] cloNIDine HCL [Catapres] 0.1 mg PO DAILY 06/26/20 [History] dilTIAZem HCL [Cardizem] 30 mg PO DAILY 06/26/20 [History] rOPINIRole [Requip] 1 mg PO TID 06/26/20 [History] Dicyclomine [Bentyl] 20 mg PO QID PRN #12 tablet 06/27/20 [Rx] Naproxen 500 mg PO BID PRN #9 tablet 01/23/21 [Rx] Past Medical History HEENT History: Reports: Allergic Rhinitis Cardiovascular History: Reports: CAD, High Cholesterol, Hypertension, [place], Stents Other Cardiovascular History: Coronary atherosclerosis Respiratory History: Reports: None, Other (See Below) Other Respiratory History: Former smoker Gastrointestinal History: Reports: Chronic Diarrhea, Irritable Bowel Syndrome, Other (See Below) Other Gastrointestinal History: Pelvic pain Genitourinary History: Reports: Other (See Below), Urinary Incontinence Other Genitourinary History: Cystocele - midline 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 HIP BURSITIS Neurological History: Reports: Migraines, Neuropathy, Diabetic, Other (See Below) Other Neuro History: LUMBAR DISC HERNIATION. SI PAIN Psychiatric History: Reports: Addiction, Anxiety, Depression, Eating Disorders, Other (See Below), PTSD Other Psychiatric History: History of alcohol abuse. Broken pain medication agreement. Maladaptive health behaviors affecting medical condition. Methamphetamin dependence Endocrine/Metabolic History: Reports: Diabetes, Type II, Obesity/BMI 30+ Other Endocrine/Metabolic History: IFG Hematologic History: Reports: Other (See Below) Other Hematologic History: + HEP C ANITIBODY Immunologic History: Reports: None Oncologic (Cancer) History: Reports: None Dermatologic History: Reports: None - Infectious Disease History Infectious Disease History: Reports: Chicken Pox - Past Surgical History Cardiovascular Surgical History: Reports: Coronary Artery Stent, None GI Surgical History: Reports: Bariatric Procedure, Cholecystectomy Social & Family History - Family History Family Medical History: No Pertinent Family History - Caffeine Use Caffeine Use: Reports: None Review of Systems - Review of Systems Review Of Systems: Comprehensive ROS is negative, except as noted in HPI. ED EXAM, GENERAL - Physical Exam Exam: See Below Exam Limited By: No Limitations General Appearance: Alert, WD/WN, Anxious Eye Exam: Bilateral Eye: PERRL Head: Atraumatic, Normocephalic Neck: Normal Inspection Respiratory/Chest: No Respiratory Distress, No Accessory Muscle Use Cardiovascular: Normal Peripheral Pulses, Regular Rate, Rhythm Peripheral Pulses: 2+: Femoral (L), Femoral (R), Popliteal (L), Popliteal (R), Posterior Tibial (L), Posterior Tibial (R), Dorsalis Pedis (L), Dorsalis Pedis (R) (Female) Exam: Deferred Rectal (Female) Exam: Deferred Back Exam: Normal Inspection, Full Range of Motion. No: CVA Tenderness (L), CVA Tenderness (R), Paraspinal Tenderness, Vertebral Tenderness Extremities: No: Normal Inspection (There is a small amount of prepatellar swelling and tenderness. There is a small amount of swelling on the medial aspect of the joint. Negative anterior drawer and Briana sign no Miller's cyst. No bruising swelling or ecchymosis. No crepitus on flexion and extension.) Neurological: Alert, Oriented Psychiatric: Normal Affect, Normal Mood Skin Exam: Warm, Dry, Intact, Normal Color Lymphatic: No Adenopathy Course - Vital Signs Last Recorded V/S: Last Vital Signs Temp 98.3 F 01/23/21 10:22 Pulse 87 01/23/21 10:22 Resp 16 01/23/21 10:22 BP 152/93 H 01/23/21 10:22 Pulse Ox 98 01/23/21 10:22 - Orders/Labs/Meds Meds: Medications Discontinued Medications Generic Name Dose Route Start Last Admin Trade Name Freq PRN Reason Stop Dose Admin Ketorolac Tromethamine 30 mg 01/23/21 10:22 01/23/21 10:52 Ketorolac 30 Mg/Ml Sdv IM 01/23/21 10:23 30 mg ONETIME ONE Administration Orphenadrine Citrate 60 mg 01/23/21 10:22 01/23/21 10:54 Orphenadrine 60 Mg/2 Ml Inj IM 01/23/21 10:23 60 mg NOW STA Administration - Radiology Interpretation Free Text/Narrative:: X-ray of the left knee per radiology shows mild degenerative changes. There is no fracture or dislocation. - Re-Assessments/Exams Free Text/Narrative Re-Assessment/Exam: 01/23/21 Ketorolac 30mg IM Norflex 60mg IM Xray of the right knee with mild degenerative changes per radiology. Patient had quite a bit of improvement with the above therapy. The patient clearly has prepatellar bursitis and she has not been resting it over the past couple of weeks or doing much therapies for her. We will place her in a knee immobilizer crutches nonsteroidals as needed and rice therapy. Recheck with primary care in a week. Discharge directions as below are explained to the patient she was comfortable with this plan and her questions were answered. Departure - Departure Time of Disposition: 11:00 Disposition: Home, Self-Care 01 Clinical Impression: Prepatellar bursitis of left knee - Discharge Information Prescriptions: Naproxen 500 mg PO BID PRN #9 tablet PRN Reason: Pain Instructions: Crutch Use, Adult, [id number], RICE Therapy for Routine Care of Injuries, [id number], Prepatellar Bursitis Rehab-SportsMed, How to Use a Knee Immobilizer, [id number], Pain Medicine Instructions, [id number] Forms: ED Department Discharge, ED Return to Work/School Form Additional Instructions: Knee immobilizer at all times. Okay to take off to bath and get dressed etc. Crutches weight bearing as tolerated with no pain. RICE therapy, see discharge instructions. Naproxen 1 tablet twice daily as needed for pain. Rx sent to [facility]. Recheck with PCP in 1 week. Return to the ED if new or worsening symptoms. Sepsis Event Note (ED) - Focused Exam Vital Signs: Vital Signs Temp Pulse Resp BP Pulse Ox 01/23/21 10:22 98.3 F 87 16 152/93 H 98
[2021-01-23 10:32] VITALS: BP 152/93; PULSE 87
--- NOTE | 2021-01-23 11:07 | CR ---
[id number] RAD/RAD Knee Left 3V EXAM: RAD Knee Left 3V CLINICAL DATA: PAIN COMPARISON: No previous similar exam is available. FINDINGS: There are mild degenerative changes There is no fracture or dislocation. IMPRESSION: MILD DEGENERATIVE CHANGES Ted Sorensen MD 01/23/21 0509 Thank you for allowing us to participate in the care of your patient.
== END 2021-01-23 11:57 | disposition home or self-care (01) ==
LOC: VM.ED 09:59
DX: M70.42 Prepatellar bursitis, left knee (principal); I25.10 Atherosclerotic heart disease of native coronary artery without angina pectoris; E78.00 Pure hypercholesterolemia, unspecified; I10 Essential (primary) hypertension; I25.2 Old myocardial infarction; E11.40 Type 2 diabetes mellitus with diabetic neuropathy, unspecified; E66.9 Obesity, unspecified; Z68.27 Body mass index [BMI] 27.0-27.9, adult; M19.90 Unspecified osteoarthritis, unspecified site; Z88.6 Allergy status to analgesic agent; Z91.040 Latex allergy status; Z79.82 Long term (current) use of aspirin; Z79.02 Long term (current) use of antithrombotics/antiplatelets; Z79.899 Other long term (current) drug therapy; Z95.5 Presence of coronary angioplasty implant and graft; Z87.891 Personal history of nicotine dependence
CPT/HCPCS: 73562-LT; 96372; 99283-25; J1885; J2360

== ENCOUNTER 2021-11-08 13:47 | Emergency (ER) | payer BC, MEDICAID ==
[2021-11-08 14:05] VITALS: BP 124/76; PULSE 79
== END 2021-11-08 14:15 | disposition home or self-care (01) ==
LOC: VM.ED 13:47
DX: K52.9 Noninfective gastroenteritis and colitis, unspecified (principal); I25.10 Atherosclerotic heart disease of native coronary artery without angina pectoris; E78.00 Pure hypercholesterolemia, unspecified; I10 Essential (primary) hypertension; I25.2 Old myocardial infarction; E11.9 Type 2 diabetes mellitus without complications; E66.9 Obesity, unspecified; Z68.26 Body mass index [BMI] 26.0-26.9, adult; Z95.5 Presence of coronary angioplasty implant and graft; Z91.040 Latex allergy status; Z88.6 Allergy status to analgesic agent; Z88.8 Allergy status to other drugs, medicaments and biological substances; Z79.82 Long term (current) use of aspirin; Z79.899 Other long term (current) drug therapy; Z79.02 Long term (current) use of antithrombotics/antiplatelets
CPT/HCPCS: 99283

== ENCOUNTER 2022-02-04 05:05 | Emergency (ER) | payer BC, MEDICAID ==
[2022-02-04 05:11] VITALS: BP 153/85; PULSE 88
[2022-02-04] MEDS ORDERED: Ketorolac 30 MG/ML SDV IM ONE (05:57)
== END 2022-02-04 07:17 | disposition home or self-care (01) ==
LOC: VM.ED 05:05
DX: M53.3 Sacrococcygeal disorders, not elsewhere classified (principal); I10 Essential (primary) hypertension; E78.00 Pure hypercholesterolemia, unspecified; E11.9 Type 2 diabetes mellitus without complications; E66.9 Obesity, unspecified; Z68.29 Body mass index [BMI] 29.0-29.9, adult; Z79.899 Other long term (current) drug therapy; Z88.0 Allergy status to penicillin; Z88.8 Allergy status to other drugs, medicaments and biological substances
CPT/HCPCS: 72100; 72220; 96372; 99283; 99284; J1885

== ENCOUNTER 2022-06-09 15:11 | Emergency (ER) | payer MEDICAID ==
[2022-06-09] MEDS ORDERED: Acetaminophen 325 MG Tab PO ONE (15:26)
[2022-06-09] MEDS ORDERED: Sodium Chloride 0.9% 1,000 ML IV ONE (15:26)
[2022-06-09 15:52] LABS: CHLORIDE,CL 100 mmol/L (98-107); SODIUM,NA 135 mmol/L (136-145)
[2022-06-09 15:53] LABS: ANION GAP 11.8 mmol/L (5-15); ESTIMATED GFR 76 mL/min (>=60)
[2022-06-09 16:06] LABS: CORONAVIRUS COVID-19 NAA NEGATIVE (NEGATIVE)
[2022-06-09 17:24] VITALS: BP 132/78; PULSE 98
== END 2022-06-09 17:28 | disposition home or self-care (01) ==
LOC: VM.ED 15:11
DX: B34.9 Viral infection, unspecified (principal); I25.10 Atherosclerotic heart disease of native coronary artery without angina pectoris; E78.00 Pure hypercholesterolemia, unspecified; I10 Essential (primary) hypertension; I25.2 Old myocardial infarction; E11.9 Type 2 diabetes mellitus without complications; E66.9 Obesity, unspecified; Z68.30 Body mass index [BMI] 30.0-30.9, adult; Z72.0 Tobacco use; Z95.5 Presence of coronary angioplasty implant and graft; Z88.8 Allergy status to other drugs, medicaments and biological substances; Z91.040 Latex allergy status; Z20.822 Contact with and (suspected) exposure to COVID-19
CPT/HCPCS: 0240U; 80053; 81001; 82550; 83605; 83615; 84145; 84484; 85025; 86140; 93005; 93010; 96360; 99284; 99285-25; A9270-GY; J7030

== ENCOUNTER 2022-10-17 18:35 | Emergency (ER) | payer MEDICAID ==
[2022-10-18 01:23] VITALS: BP 168/85; PULSE 80
== END 2022-10-17 20:27 | disposition home or self-care (01) ==
LOC: VM.ED 18:35
DX: M54.2 Cervicalgia (principal); I25.10 Atherosclerotic heart disease of native coronary artery without angina pectoris; E78.00 Pure hypercholesterolemia, unspecified; I10 Essential (primary) hypertension; I25.2 Old myocardial infarction; M19.90 Unspecified osteoarthritis, unspecified site; E11.40 Type 2 diabetes mellitus with diabetic neuropathy, unspecified; E66.9 Obesity, unspecified; Z68.26 Body mass index [BMI] 26.0-26.9, adult; Z88.8 Allergy status to other drugs, medicaments and biological substances; Z88.5 Allergy status to narcotic agent; Z91.040 Latex allergy status; Z91.048 Other nonmedicinal substance allergy status; Z79.82 Long term (current) use of aspirin; Z79.899 Other long term (current) drug therapy
CPT/HCPCS: 93005; 99283